=== PATIENT | male | born 1950 | race Hispanic/Latino ===

== ENCOUNTER 2019-07-27 12:41 | Inpatient (IN) | payer MEDICARE, OTHER ==
[~2019-07-27] VITALS: Ht 167.6 cm; Wt 91.6 kg
[2019-07-27 14:24] LABS: BASOPHILS # (AUTO) 0.1 (0.0-0.1); BASOPHILS % 0.5 % (0.0-1.0); EOSINOPHILS # (AUTO) 0.2 (0.0-0.4); EOSINOPHILS % 1.5 % (0.0-6.0); HEMATOCRIT 40.1 % (38.2-49.6); HEMOGLOBIN 12.6 g/dL (14.0-18.0); LYMPHOCYTES # (AUTO) 1.2 (1.0-3.2); LYMPHOCYTES % 11.6 % (18.0-39.1); MEAN CORPUSCULAR HEMOGLOBIN 32.6 pg (28-32); MEAN CORPUSCULAR HGB CONC 31.4 g/dL (31-35); MEAN CORPUSCULAR VOLUME 103.6 fL (81-99); MONOCYTES # (AUTO) 0.7 (0.2-0.8); MONOCYTES % 6.9 % (4.4-11.3); NEUTROPHILS # (AUTO) 7.8 (2.1-6.9); NEUTROPHILS % 78.6 % (38.7-80.0); PLATELET COUNT 236 x10e3/uL (140-360); RED BLOOD COUNT 3.87 x10e6/uL (4.3-5.7); RED CELL DISTRIBUTION WIDTH 16.1 % (11.7-14.4)
[2019-07-27 14:43] LABS: ALBUMIN/GLOBULIN RATIO 0.4 (0.8-2.0); ANION GAP 15.5 mmol/L (8-16); CALCIUM 8.9 mg/dL (8.4-10.2); CHOL/HDL RATIO 30.1 (3.9-4.7); CREATININE, SERUM 3.64 mg/dL (0.72-1.25); POTASSIUM 4.5 mmol/L (3.5-5.1)
[2019-07-27 14:47] LABS: INR 2.55; PROTHROMBIN TIME 29.4 seconds (11.9-14.5)
[2019-07-27 14:51] LABS: B-TYPE NATRIURETIC PEPTIDE2 172.5 pg/mL (0-100); CREATINE KINASE MB 2.7 ng/mL (0-5.0)
[2019-07-27] MEDS ORDERED: CEFEPIME 1GM/NS 0.9% 50 ML 50 ML IV STA (15:17)
--- NOTE | 2019-07-27 16:00 | Emergency Department Note ---
History of Present Illnes History of Present Illness Chief Complaint: General Medicine Complaints Stated Complaint: SWOLLEN FEET History of Present Illness This is a 68 year old male . Historian: Patient Slasher Hand Required: No Onset (how long ago): month(s) (1 month) Severity: severe Onset quality: gradual Duration (how long): month(s) (1 month) Timing of current episode: constant Progression: worsening Chronicity: new Relieving factors: none Exacerbating factors: none Associated symptoms: other (abd pain and distention ) Treatments prior to arrival: none (TERRANCE AGUSTIN NP) Past Medical/Family History Physician Review I have reviewed the patient's past medical and family history. Any updates have been documented here. (TERRANCE AGUSTIN NP) Past Medical History Recent Fever: No Clinical Suspicion of Infectio: No New/Unexplained Change in Ment: No Past Medical History: Hypertension Past Surgical History: None (TERRANCE AGUSTIN NP) Social History Smoking Cessation: Former smoker (quit 45 days ago) Alcohol Use: None Any Illegal Drug Use: No TB Exposure/Symptoms: No Physically hurt or threatened: No (TERRANCE AGUSTIN NP) Family History Family history of heart diseas: Yes (TERRANCE AGUSTIN NP) Other Last Tetanus: ood Any Pre-Existing Lines (PICC,: No (TERRANCE AGUSTIN NP) Review of Systems Review of Systems Constitutional: malaise Cardiovascular: edema Respiratory: dyspnea, dyspnea on exertion Gastrointestinal: abdominal pain Genitourinary: no symptoms Musculoskeletal: no symptoms Integumentary: change in color (jaundice) Neurological: no symptoms Psychological: no symptoms Endocrine: no symptoms Hematological/Lymphatic: no symptoms Review of other systems All other systems reviewed and negative. (TERRANCE AGUSTIN NP) Physical Exam Related Data Allergies: Coded Allergies: No Known Allergies (Unverified , 07/27/19) Triage Vital Signs Vital Signs Date Time Temp Pulse Resp B/P (MAP) Pulse Ox O2 Delivery O2 Flow Rate FiO2 07/27/19 13:39 97.8 73 18 128/76 100 (TERRANCE AGUSTIN NP) Exam Narrative Exam Narrative Patient is a 68 year old male that presents with eva foot pain and swelling that started 1 month ago. Patient states he is also having abdominal pain and distention and noticed eye were yellow. (TERRANCE AGUSTIN NP) Physical Exam CONSTITUTIONAL Constitutional: ill appearing HENT HENT: normocephalic, atraumatic, oropharynx normal, pharynx abnormal HENT - Ear: left TM normal, right TM normal EYES Eyes: PERRL, scleral icterus NECK Neck: ROM normal, supple PULMONARY Pulmonary: effort normal, breath sounds normal CARDIOVASCULAR Cardiovascular: regular rhythm, heart sounds normal, capillary refill normal, normal rate GASTROINTESTINAL Abdominal: distension, tender GENITOURINARY SKIN Skin: warm, jaundiced MUSCULOSKELETAL Musculoskeletal: ROM normal, edema NEUROLOGICAL Neurological: alert, oriented x 3, no gross motor or sensory deficits PSYCHOLOGICAL Psychiatric/behavioral: mood/affect normal, behavior normal (TERRANCE AGUSTIN NP) Results Laboratory Laboratory Laboratory Tests Test 07/27/19 13:55 White Blood Count 9.90 x10e3/uL (4.8-10.8) Red Blood Count 3.87 x10e6/uL (4.3-5.7) Hemoglobin 12.6 g/dL (14.0-18.0) Hematocrit 40.1 % (38.2-49.6) Mean Corpuscular Volume 103.6 fL (81-99) Mean Corpuscular Hemoglobin 32.6 pg (28-32) Mean Corpuscular Hemoglobin Concent 31.4 g/dL (31-35) Red Cell Distribution Width 16.1 % (11.7-14.4) Platelet Count 236 x10e3/uL (140-360) Neutrophils (%) (Auto) 78.6 % (38.7-80.0) Lymphocytes (%) (Auto) 11.6 % (18.0-39.1) Monocytes (%) (Auto) 6.9 % (4.4-11.3) Eosinophils (%) (Auto) 1.5 % (0.0-6.0) Basophils (%) (Auto) 0.5 % (0.0-1.0) Neutrophils # (Auto) 7.8 (2.1-6.9) Lymphocytes # (Auto) 1.2 (1.0-3.2) Monocytes # (Auto) 0.7 (0.2-0.8) Eosinophils # (Auto) 0.2 (0.0-0.4) Basophils # (Auto) 0.1 (0.0-0.1) Absolute Immature Granulocyte (auto 0.09 x10e3/uL (0-0.1) Prothrombin Time 29.4 seconds (11.9-14.5) Prothromb Time International Ratio 2.55 Activated Partial Thromboplast Time 23.0 seconds (23.8-35.5) Sodium Level 141 mmol/L (136-145) Potassium Level 4.5 mmol/L (3.5-5.1) Chloride Level 115 mmol/L (98-107) Carbon Dioxide Level 15 mmol/L (22-29) Anion Gap 15.5 mmol/L (8-16) Blood Urea Nitrogen 54 mg/dL (7-26) Creatinine 3.64 mg/dL (0.72-1.25) Estimat Glomerular Filtration Rate 17 ML/MIN (60-) BUN/Creatinine Ratio 15 (6-25) Glucose Level 93 mg/dL (74-118) Lactic Acid Level 1.8 mmol/L (0.5-2.0) Calcium Level 8.9 mg/dL (8.4-10.2) Total Bilirubin 8.1 mg/dL (0.2-1.2) Aspartate Amino Transf (AST/SGOT) 56 IU/L (5-34) Alanine Aminotransferase (ALT/SGPT) 47 IU/L (0-55) Alkaline Phosphatase 549 IU/L (40-150) Creatine Kinase 36 IU/L (30-200) Creatine Kinase MB 2.70 ng/mL (0-5.0) Troponin I 0.011 ng/mL (0-0.300) B-Type Natriuretic Peptide 172.5 pg/mL (0-100) Total Protein 6.7 g/dL (6.5-8.1) Albumin 2.0 g/dL (3.5-5.0) Globulin 4.7 g/dL (2.3-3.5) Albumin/Globulin Ratio 0.4 (0.8-2.0) Triglycerides Level 264 MG/DL (0-149) Cholesterol Level 211 MD/DL (0-199) LDL Cholesterol 151 MG/DL (60-130) HDL Cholesterol 7 MG/DL (40-60) Cholesterol/HDL Ratio 30.1 (3.9-4.7) Lipase 53 U/L (8-78) Lab results reviewed: Yes (TERRANCE AGUSTIN NP) Imaging Y: Yes (TERRANCE AGUSTIN NP) Procedures 12 Lead ECG Interpretation Slasher Hand: Interpreted by ED physician (JOSS) Date: July 27, 2019 Time: 14:03 Rhythm: sinus rhythm Rate: normal QRS axis: normal Clinical Impression: normal ECG (TERRANCE AGUSTIN NP) Critical Care Time Subsequent provider I assumed direction of critical care for this patient from another provider of my specialty. (TERRANCE AGUSTIN NP) Assessment & Plan Assessment & Plan Problems: (1) Bilirubinemia (2) Liver cirrhosis (3) Transaminitis Assessment & Plan 1315- PATIENT TO A ROOM, DISCUSSED BLOOD WORK AND XRAY. ALSO DISCUSSED WITH PATIENT THAT HE WILL BE STAYING OVERNIGHT 1420- AWAITING ALL RESULTS, PATIENT RESTING 1530- ALL RESULTS DISCUSSED WITH DR COREAS, SPOKE TO DR JJ. ADMISSION ORDERS PLACED (TERRANCE AGUSTIN NP) Depart Disposition: ADMITTED Last Vital Signs Date Time Temp Pulse Resp B/P (MAP) Pulse Ox O2 Delivery O2 Flow Rate FiO2 07/27/19 13:39 97.8 73 18 128/76 100 (TERRANCE AGUSTIN NP) Home Meds Reported Medications [Denies HM] No Conflict Check 07/27/19 Attestation Medications in the ED The patient's history, exam findings, diagnostics, and a summary of any inte rventions or procedures was reviewed in detail with our RADHA. I personally interviewed and examined the patient, and I have reviewed and agree with the HPI andexam. My personal exam shows ill appearing male with scleral icterus. Abdomen distended but pt is not in acute respiratory distress. I confirm the diagnosis as documented by the RADHA. I have reviewed and agree with the care plan articulated in the disposition section. (FERNANDO COREAS DO) TERRANCE AGUSTIN NP July 27, 2019 14:01 FERNANDO COREAS DO July 27, 2019 15:22
[2019-07-27 17:07] LABS: BILIRUBIN,URINE LARGE (NEGATIVE); CLARITY,URINE CLOUDY (CLEAR); COLOR,URINE AMBER (YELLOW); KETONES,URINE TRACE (NEGATIVE); LEUKOCYTE ESTERASE ,URINE TRACE (NEGATIVE); NITRITE,URINE NEGATIVE (NEGATIVE); PROTEIN,URINE DIPSTICK 2+ (NEGATIVE); URINE UROBILINOGEN 2 mg/dL (0.2 - 1)
[2019-07-27 17:19] LABS: AMORPHOUS SEDIMENT,URINE MODERATE (FEW); BACTERIA,URINE MANY /HPF; EPITHELIAL CELLS,URINE RARE /LPF
[2019-07-27 21:00] VITALS: BP 136/73
[2019-07-27] MEDS ORDERED: PNEUMOCOCCAL VACCINE POLYVALENT 23 MCG/0.5 ML VIAL IM SCH (21:20)
[2019-07-27 21:30] VITALS: BP 136/73
[2019-07-27 23:06] VITALS: BP 136/73
[2019-07-27] MEDS ORDERED: [UNRECOGNIZED DRUG - REMARK] (23:11)
[2019-07-28] VITALS (7 sets, daily range): BP systolic 94–132; BP diastolic 58–74
[2019-07-28] MEDS ORDERED: PHYTONADIONE 10 MG/ML AMP IV ONE (00:30)
[2019-07-28] MEDS ORDERED: PHYTONADIONE 10MG/ML 20 MG in SODIUM CHLORIDE 0.9% 100 ML 100 ML IV ONE (00:45)
[2019-07-28] MEDS ORDERED: THIAMINE HCL INJ 100 MG in SODIUM CHLORIDE 0.9% 50ML 50 ML IV SCH (02:00)
[2019-07-28] MEDS ORDERED: PHYTONADIONE 10MG/ML 20 MG in SODIUM CHLORIDE 0.9% 50ML 50 ML IV ONE (02:30)
[2019-07-28] MEDS ORDERED: SODIUM CHLORIDE 0.9% 250ML 250 ML ONE (02:35)
[2019-07-28 05:30] LABS: BASOPHILS # (AUTO) 0.1 (0.0-0.1); BASOPHILS % 0.8 % (0.0-1.0); EOSINOPHILS # (AUTO) 0.3 (0.0-0.4); EOSINOPHILS % 3.9 % (0.0-6.0); HEMATOCRIT 33.5 % (38.2-49.6); HEMOGLOBIN 10.7 g/dL (14.0-18.0); LYMPHOCYTES # (AUTO) 1.2 (1.0-3.2); LYMPHOCYTES % 13.5 % (18.0-39.1); MEAN CORPUSCULAR HEMOGLOBIN 33.3 pg (28-32); MEAN CORPUSCULAR HGB CONC 31.9 g/dL (31-35); MEAN CORPUSCULAR VOLUME 104.4 fL (81-99); MONOCYTES # (AUTO) 0.7 (0.2-0.8); MONOCYTES % 7.6 % (4.4-11.3); NEUTROPHILS # (AUTO) 6.4 (2.1-6.9); NEUTROPHILS % 73.3 % (38.7-80.0); PLATELET COUNT 215 x10e3/uL (140-360); RED BLOOD COUNT 3.21 x10e6/uL (4.3-5.7); RED CELL DISTRIBUTION WIDTH 15.6 % (11.7-14.4)
[2019-07-28 05:43] LABS: INR 1.11
[2019-07-28 05:59] LABS: ALBUMIN 1.7 g/dL (3.5-5.0); ALBUMIN/GLOBULIN RATIO 0.4 (0.8-2.0); CALCIUM 7.8 mg/dL (8.4-10.2); CREATININE, SERUM 3.57 mg/dL (0.72-1.25)
[2019-07-28 06:08] LABS: FERRITIN 340.34 ng/mL (21.81-274.66)
--- NOTE | 2019-07-28 06:30 | NUR ---
Left message for Dr Rosa regarding new consult for abnormal kidney function, ascites. Awaiting call back.
--- NOTE | 2019-07-28 06:34 | NUR ---
Return call from Dr Rosa, Will see patient.
--- NOTE | 2019-07-28 07:05 | NUR ---
Bedside report and walking rounds completed with on coming nurse. Patient in bed with call light within reach. No issues or concerns noted.
[2019-07-28] MEDS ORDERED: MULTIVITAMINS- 12 INJECTION 10 ML, FOLIC ACID MDV 5 MG, THIAMINE HCL INJ 100 MG in SODI... IV SCH (09:00)
--- NOTE | 2019-07-28 09:56 | Diagnostic Imaging Report ---
EXAMINATION: CHEST SINGLE (PORTABLE) INDICATION: Shortness of breath COMPARISON: None FINDINGS: LINES/TUBES:None LUNGS:The lung volumes are low. Right basilar patchy opacity. PLEURA:No pleural effusion or pneumothorax. MEDIASTINUM:The cardiomediastinal silhouette appears normal in size and shape. BONES/SOFT TISSUES:No acute osseous injury. ABDOMEN:No free air under the diaphragm. IMPRESSION: Low lung volumes. Right basilar patchy opacity, more likely subsegmental atelectasis than superimposed aspiration or pneumonia. Signed by: Derick Vasquez MD on 07/28/2019 9:50 AM
--- NOTE | 2019-07-28 10:59 | Diagnostic Imaging Report ---
EXAM: CT Abdomen and Pelvis WITHOUT intravenous contrast INDICATION: Abdominal distention COMPARISON: None. TECHNIQUE: Abdomen and pelvis were scanned utilizing a multidetector helical scanner from the lung base to the pubic symphysis without administration of IV contrast. Coronal and sagittal reformations were obtained. IV CONTRAST: None ORAL CONTRAST: Water COMPLICATIONS: None RADIATION DOSE: Total DLP: 729 mGy*cm Dose modulation, iterative reconstruction, and/or weight based adjustment of the mA/kV was utilized to reduce the radiation dose to as low as reasonably achievable. FINDINGS: LOWER THORAX: Right basilar subsegmental atelectasis. HEPATOBILIARY: Hepatic cirrhosis. Heterogeneous attenuation of liver parenchyma, most notably the left liver and segment 4. Unremarkable gallbladder. SPLEEN: Splenomegaly to 15 cm. PANCREAS: No focal masses or ductal dilatation. ADRENALS: No adrenal nodules. KIDNEYS/URETERS: Severely atrophic left kidney, likely congenital. Unremarkable appearance of right kidney without renal calculus or hydronephrosis. PELVIC ORGANS/BLADDER: Unremarkable. PERITONEUM / RETROPERITONEUM: Large volume ascites in the abdomen and pelvis. LYMPH NODES: No lymphadenopathy. VESSELS: Scattered atherosclerotic calcifications of the nonaneurysmal abdominal aorta and major branches. GI TRACT: No abnormal bowel thickening. No bowel obstruction. BONES AND SOFT TISSUES: No acute osseous injury. No suspicious lytic or blastic lesions. IMPRESSION: Hepatic cirrhosis and splenomegaly. Large volume ascites consistent with portal hypertension. Heterogeneous appearance of the liver parenchyma, most notably on the left. Underlying liver mass cannot be excluded on this noncontrast examination. Recommend liver mass protocol CT or MRI for further evaluation. Severely atrophic left kidney, likely congenital. Signed by: Derick Vasquez MD on 07/28/2019 10:52 AM
--- NOTE | 2019-07-28 12:56 | Diagnostic Imaging Report ---
PROCEDURE: Ultrasound-guided paracentesis Procedural Personnel Attending physician(s): Derick Vasquez MD Pre-procedure diagnosis: Ascites Post-procedure diagnosis: Unchanged Indication: Ascites with pain or pressure symptoms Additional clinical history: None Complications: No immediate complications. IMPRESSION: Ultrasound-guided paracentesis with drainage of 9200 mL of serous fluid. Plan: Resume care by clinical team. PROCEDURE SUMMARY: - Limited abdominal ultrasound - Ultrasound-guided paracentesis - Additional procedure(s): None PROCEDURE DETAILS: Pre-procedure Consent: Informed consent for the procedure including risks, benefits and alternatives was obtained and time-out was performed prior to the procedure. Preparation: The site was prepared and draped using maximal sterile barrier technique including cutaneous antisepsis. Anesthesia/sedation Level of anesthesia/sedation: None Initial abdominal ultrasound Initial abdominal ultrasound was performed. Findings: Large ascites. A safe window for paracentesis was identified. Paracentesis Local anesthesia was administered. The peritoneal cavity was accessed and fluid return confirmed position. Ascites was drained. The catheter was then removed, and a sterile bandage was applied. Paracentesis access technique: Real-time ultrasound guidance. Catheter placed: 5Fr Yueh Post-drainage ultrasound: No visible ascites Additional Details Additional description of procedure: None Equipment details: None Specimens removed: Abdominal fluid Estimated blood loss (mL): Minimal (<10cc) Standardized report: [email or web address] Attestation Signer name: Derick Vasquez MD I attest that I was present for the entire procedure. I reviewed the stored images and agree with the report as written. Signed by: Derick Vasquez MD on 07/28/2019 12:49 PM
--- NOTE | 2019-07-28 14:49 | History and Physical ---
HISTORY OF PRESENT ILLNESS: The patient is a 68-year-old male with past medical history positive for heavy alcohol and tobacco abuse, came to the hospital complaining of increased swelling on the legs and abdominal distention, and showing these admitted to the hospital. REVIEW OF SYSTEMS: CARDIOVASCULAR: No chest pain or palpitation. RESPIRATORY: No shortness of breath. No cough. GASTROINTESTINAL: No nausea. No vomiting. No diarrhea. GENITOURINARY: No frequency or dysuria. ALLERGIES: HE IS NOT ALLERGIC TO ANY MEDICATION. SOCIAL HISTORY: Heavy alcohol and tobacco abuser. He quit few days ago. PHYSICAL EXAMINATION: HEART: Showed regular rhythm. Normal S1, S2 sound. LUNGS: Clear bilaterally. ABDOMEN: Soft, but distended. No tenderness. No visceromegaly. EXTREMITIES: Show 2+ bilateral pedal edema. VITAL SIGNS: Blood pressure is 132/74, temperature 97.6 degrees Fahrenheit, heart rate 76 per minute, respiratory rate 18 per minute, oxygen saturation 97%. LABORATORY DATA: On the complete metabolic panel; sodium 139, potassium 4.0, chloride 117, carbon dioxide 14, BUN 59, creatinine 3.57, GFR is 17, glucose 95, calcium 7.8, iron 44, TIBC 123, transferrin 488, ferritin 340.34, total bilirubin 6.8. AST 52, ALT 38, alkaline phosphatase 459. Ammonia level is 81. Total protein 5.8, albumin 1.7, globulin 4.1, albumin/globulin ratio 0.4, vitamin B12 alpha-fetoprotein is not there yet. Folic acid is pending. He had a hepatitis profile order. Coronavirus disease pending. IMAGING: He has chest x-ray and CT of the chest, which are still pending. PLAN OF TREATMENT: He is going to go for paracentesis. Dr. Jose Munoz was consulted. From Gastroenterology point of view, he is on pneumonia vaccine. I am going to put him on Lasix 40 mg IV twice a day. I am going to start him on Aldactone 25 mg twice a day. We are going to repeat a CMP tomorrow. He is going to go for paracentesis today. Hepatitis profile has been ordered. Ceruloplasmin, antinuclear antibodies, and antimitochondrial antibodies have been ordered. Also part of the workup alpha-fetoprotein has been ordered. MD DARREL Najera/KELLY /[id number]
[2019-07-28 14:55] LABS: LYMPHOCYTES,BODY FLUID 44 %; MONO/MACROPHG,BODY FLUID 10 %; OTHER CELLS,BODY FLUID 33 %
[2019-07-28 14:57] LABS: NEUTROPHILS,BODY FLUID 13 %
[2019-07-28 15:28] LABS: BODY FLUID APPEARANCE CLOUDY; BODY FLUID COLOR GREEN
[2019-07-28 15:29] LABS: BODY FLUID TYPE PERITONEAL
[2019-07-28 15:41] LABS: RBC,BODY FLUID 99 cells/uL; WBC,BODY FLUID 67 cells/uL
[2019-07-28] MEDS: FUROSEMIDE INJ 10 MG/ML 4 ML VIAL IV SCH ×2 (15:56→21:35)
--- NOTE | 2019-07-28 16:55 | Diagnostic Imaging Report ---
EXAM: Renal Ultrasound INDICATION: ^kidmey failure ^[id number] ^[id number] COMPARISON: None TECHNIQUE: Transverse and longitudinal images of the kidneys and bladder were obtained. FINDINGS: Right Kidney: Length: 10.6 cm Appearance: Normal echogenicity. Collecting system: No hydronephrosis Stones: None Cyst/Mass: None Left Kidney: Length: 6.2 cm Appearance: Normal echogenicity. Collecting system: No hydronephrosis Stones: None Cyst/Mass: None Bladder: No mass or calculi. Bilateral ureteral jets visualized. Prevoid volume estimate of 34 cc. The prostate measures 1.6 x 1.4 x 2.5 cm with volume estimate of 3 cc. Small volume ascites. IMPRESSION: No hydronephrosis or renal calculi. Atrophic left kidney, likely congenital. Small volume ascites. Signed by: Derick Vasquez MD on 07/28/2019 4:43 PM
[2019-07-28] MEDS: SPIRONOLACTONE 25 MG TAB PO SCH (18:44)
--- NOTE | 2019-07-28 19:46 | NUR ---
Received bedside report from day nurse. Patient awake and resting in bed, no s/s of distress at this time. Bed locked and in low position, call light placed within reach. All safety measures in place. Will continue to monitor.
--- NOTE | 2019-07-28 22:01 | Consultation ---
DATE OF CONSULTATION: Initial Nephrology Consultation Report REASON FOR CONSULTATION: Renal failure. HISTORY OF PRESENT ILLNESS: Mr. Mercer is a 68-year-old male, who presented to the hospital because of increased swelling and the patient states that he does not have a family physician PCP. He says he has not sought healthcare in the past 35 years. The patient presents actually with what looks like to be liver cirrhosis. I am being asked to see him because of BUN and creatinine of 59 and 3.5 respectively. I do not have any old serum creatinine values on him and he cannot tell me anything about his past medical history. He says he does not know since he has not been to a doctor in 35 years. The patient denies taking any NSAIDs or FRASER-2 inhibitors which are nephrotoxic. PAST MEDICAL HISTORY: The patient states at one time he was told by somebody that he has hypertension. He was started on some blood pressure medicines for a while, but then he stopped taking those. PAST SURGICAL HISTORY: Unknown. MEDICATIONS: As per MAR. REVIEW OF SYSTEMS: As per HPI. PHYSICAL EXAMINATION: VITAL SIGNS: Blood pressure 138/74, pulse 76, respirations 18. GENERAL: The patient is in no acute distress. HEENT: No increased JVD. CARDIOVASCULAR: Regular rate and rhythm. LUNGS: Clear to auscultate to auscultation. ABDOMEN: Distended. EXTREMITIES: The patient has 3+ edema of the legs. LABORATORY RESULTS: Sodium 139, potassium 4, chloride 117, bicarb 14, BUN and creatinine 59 and 3.5 respectively. Hematocrit is 33. IMPRESSION: 1. Acute kidney injury. 2. Liver failure. 3. Atrophic left kidney. 4. Probable metabolic acidosis. 5. Anasarca. PLAN: At the present time, the patient has renal failure. The patient underwent a paracentesis that took off 9.[address] of the abdomen was done, which shows that the left kidney is severely atrophic, so basically the patient is living off with one kidney. It is hard to know the etiology of this kidney failure since we do not have a baseline established. We do not know if this is all acute, but there is a chronic component. I will check a renal ultrasound just to see if they comment on the ultrasound of the remaining kidney. Also likely, he could have hepatorenal syndrome. He says that he was taking medicines for a short while for hypertension, but then he stopped those. His blood pressure is actually good here. In the meantime here in the hospital, NSAIDs, FRASER-2 inhibitors, IV contrast should be avoided. We will continue the Lasix. Also, the spironolactone will be continued. Also, we will watch his potassium. I will check a venous blood gas to make sure that the decrease in serum bicarb is metabolic acidosis and not respiratory alkalosis with metabolic compensation. If it is, then we will start him on some sodium bicarbonate tablets. Right now, he is at stage 4 chronic kidney disease, if this is his baseline. Thank you, Dr. Mckinley, for this consultation. Ather MD NEO Beck/KELLY /[id number]
--- NOTE | 2019-07-28 23:52 | NUR ---
Report given to oncoming nurse. Patient in stable condition, no s/s of distress at this time.
[2019-07-29] VITALS (7 sets, daily range): BP systolic 104–143; BP diastolic 53–65
--- NOTE | 2019-07-29 | NUR ---
pt received. no ss of distress noted. 24 urine on ice. no co pain at time. will cont to follow poc. call ferraro within reach.
--- NOTE | 2019-07-29 04:04 | NUR ---
pt resting. no ss of distress noted. call ferraro within reach.
[2019-07-29 05:57] LABS: ALBUMIN 1.7 g/dL (3.5-5.0); ALBUMIN/GLOBULIN RATIO 0.4 (0.8-2.0); ANION GAP 14.2 mmol/L (8-16); CREATININE, SERUM 3.7 mg/dL (0.72-1.25); POTASSIUM 4.2 mmol/L (3.5-5.1)
[2019-07-29] MEDS: FOLIC ACID 1 MG TAB PO SCH (08:42)
[2019-07-29] MEDS: THIAMINE HCL 100 MG TAB PO SCH (08:42)
[2019-07-29] MEDS: FUROSEMIDE INJ 10 MG/ML 4 ML VIAL IV SCH ×2 (08:42→20:53)
[2019-07-29] MEDS: SPIRONOLACTONE 25 MG TAB PO SCH ×2 (08:42→18:21)
[2019-07-29] MEDS: IRON SUCROSE 100 MG in SODIUM CHLORIDE 0.9% 100 ML 100 ML IV SCH (08:44)
[2019-07-29] MEDS ORDERED: MULTIVITAMINS 120ML BOTTLE PO SCH (09:00)
--- NOTE | 2019-07-29 10:45 | NUR ---
ASSESSMENT: Spiritual concern Surgeon'S Assistant referred by RN. Pt lonely. Pt recounting life experiences and reflecting on family. Pt states his 90 y/o mother still lives near [place]. Intervention: Provided unhurried pastoral presence. Facilitated illness review and storytelling. Outcome: Pt expressed appreciation for visit and support. Provided information on how to reach starch mangle tender, if needed. No need to follow at this time. DAY CROWDER Surgeon'S Assistant Spiritual Care Department O: [phone]
--- NOTE | 2019-07-29 11:24 | Progress Note ---
DATE: Internal Medicine Progress Note SUBJECTIVE: The patient is doing well. PHYSICAL EXAMINATION: HEART: Showed regular rhythm. Normal S1 and S2 sound. LUNGS: Clear bilaterally. ABDOMEN: Distended, but not as much as before. EXTREMITIES: Show 2+ bilateral pedal edema. VITAL SIGNS: Blood pressure 112/60, temperature 96.6, heart rate 67 per minute, respiratory rate is 20 per minute, oxygen saturation 98%. LABORATORY DATA: On the blood work, we have a CBC; white blood count 8.76, hemoglobin 10.7, hematocrit 33.5, platelet count of 215,000. On the BMP; sodium 139, potassium 4.2, chloride 115, carbon dioxide 14, BUN 62, creatinine 3.70, glucose 95, calcium 8.0, ferritin is elevated at 340.34. AST 93, ALT 50, ammonia is 174. The patient is alert and oriented. Alpha fetoprotein is 2.1, which is within normal limits. Folate is 10.9, lipase is normal at 53. Ceruloplasmin is pending. Triglycerides are 264, cholesterol is 211. We have a hepatitis profile negative. Coronavirus test is pending. Antimitochondrial antibody is pending. The patient had paracentesis also done. Peritoneal fluid shows 67 white blood cells, 99 red blood cells, lymphocytes 44, neutrophils 13, monocytes 10, and so far the fluid culture from ascites is completely negative. Urine culture is negative. Blood culture is negative. FINAL IMPRESSION: 1. Cirrhosis with ascites. 2. Anasarca. 3. Acute on chronic renal failure stage 3, more likely secondary to hepatorenal syndrome. 4. Anemia of chronic disease secondary to cirrhosis. 5. Urinary tract infection. PLAN OF TREATMENT: Continue iron sucrose 100 mg IV daily. Continue folic acid 1 mg daily, furosemide 40 mg IV twice a day, multivitamin daily, Aldactone 25 mg twice a day, and thiamine 100 mg daily. We are going to order BMP tomorrow to monitor BUN, creatinine and electrolytes. We are using high dose of the furosemide and also we are using Aldactone. We are going to order physical and occupational therapy also. The patient is told to abstain from drinking and smoking of course. Dr. Jose Munoz is seeing the patient from the Gastroenterology point of view. Time spent around 35 to 40 minutes. MD DARREL Najera/KELLY /[id number]
[2019-07-29] MEDS: SODIUM BICARBONATE 650 MG TAB PO SCH (13:55)
[2019-07-29 17:15] LABS: DURATION, URINE COLLECTION 24 hrs; TOTAL VOLUME, URINE 3000 ml/24hr (800-2000)
[2019-07-29 17:41] LABS: CREATININE 24 HOUR,URINE 682 mg/24hr (800-2000); CREATININE,URINE RANDOM 22.73 mg/dL (63-166)
[2019-07-29 17:46] LABS: TOTAL PROTEIN, URINE < 6.8 mg/dL (1-14)
--- NOTE | 2019-07-29 17:47 | NUR ---
Nutrition Screen Note RD Recommendation for Physician: - Continue current diet Plan of Care: RD following, monitoring for tolerance and adequacy Nutrition reason for involvement: Nutrition Risk Trigger Primary Diagnose(s): cirrhosis, ascites, anasarca, transaminitis, bilirubinemia PMH: ETOH abuse, substance use, CKD3 Ht: 66 in Wt: 202.19 lb BMI: 32.6 kg/m2 IBW: [address] Assessment: (07/28) 68 YOM admitted for cirrhosis and ascites requiring paracentesis. Pt seen today for MST screen. Pt reports good appetite and po intake, noted 75-100% of meals per chart. Pt reports UBW of 200#, no wt loss noted. Pt reports feeling better after paracentesis. Pt denies any N/V/C/D. Chart reviewed. Labs and meds reviewed. Will continue to monitor. Current Diet: Cardiac Malnutrition Evaluation (07/29/19) The patient does not meet criteria for a specified degree of malnutrition at this time. Will re-evaluate at follow-up as appropriate. Diet Education Needs Assessment: Diet education not indicated. Diet tolerance: tolerating po Nutrition Care Level: low Signed: Diana Pantoja RD, LD, [facility]
--- NOTE | 2019-07-29 18:02 | NUR ---
patient resting in bed, alert with no distress, denies any pain or SOB
--- NOTE | 2019-07-29 18:57 | NUR ---
Received change of shift report from AM nurse. Walking rounds completed. Patient in bed resting quitly at this time.
--- NOTE | 2019-07-29 22:45 | NUR ---
Yuim RICHARDS from ER completed nasal swab. Sent to lab. IV restarted left AC 20G x1 stick. Patient tolerated well.
--- NOTE | 2019-07-29 23:44 | NUR ---
Dr Munoz on the floor to see patient. Orders received. Consult placed for nutrient for teaching on 2gm sodium diet.
[2019-07-30] VITALS: BP_SYST 101; BP_SYST 114; BP_DIAS 63; BP_DIAS 68
[2019-07-30 06:01] LABS: ALBUMIN 1.6 g/dL (3.5-5.0); ALBUMIN/GLOBULIN RATIO 0.4 (0.8-2.0); ANION GAP 13.8 mmol/L (8-16); CALCIUM 8.3 mg/dL (8.4-10.2); CREATININE, SERUM 3.51 mg/dL (0.72-1.25); POTASSIUM 3.8 mmol/L (3.5-5.1)
--- NOTE | 2019-07-30 06:19 | NUR ---
Patient resting quitly at this time. Continue monitor.
[2019-07-30 07:56] VITALS: BP 100/55
[2019-07-30 08:09] VITALS: BP 100/55
[2019-07-30] MEDS: MULTIVITAMINS/MINERALS TAB PO SCH (08:36)
[2019-07-30] MEDS: THIAMINE HCL 100 MG TAB PO SCH (08:36)
[2019-07-30] MEDS: SPIRONOLACTONE 25 MG TAB PO SCH ×2 (08:36→17:25)
[2019-07-30] MEDS: FOLIC ACID 1 MG TAB PO SCH (08:36)
[2019-07-30] MEDS: SODIUM BICARBONATE 650 MG TAB PO SCH (08:36)
[2019-07-30] MEDS: IRON SUCROSE 100 MG in SODIUM CHLORIDE 0.9% 100 ML 100 ML IV SCH (08:37)
[2019-07-30] MEDS ORDERED: IRON SUCROSE 100 MG in SODIUM CHLORIDE 0.9% 100 ML 100 ML IV SCH (09:00)
[2019-07-30] MEDS: FUROSEMIDE INJ 10 MG/ML 4 ML VIAL IV SCH ×2 (09:36→21:00)
[2019-07-30 11:56] VITALS: BP 110/64
[2019-07-30] MEDS ORDERED: LACTULOSE SYRUP 20 GM/30 ML UDC PO PRN (14:30)
[2019-07-30 16:00] VITALS: BP 96/57
--- NOTE | 2019-07-30 16:01 | NUR ---
RD received consult for low sodium diet education Nutrition Education Learner(s): pt Barriers: none Cultural/Language Modifications: No cultural/language modifications noted Readiness: eager/acceptance Method: explanation/ discussion, handout Topics: low sodium diet Understanding/Compliance: pt verbalized understanding Signed: Coretta Santamaria RD, LD
--- NOTE | 2019-07-30 16:21 | Diagnostic Imaging Report ---
EXAM: Right upper quadrant abdominal ultrasound INDICATION: Hyperbilirubinemia COMPARISON: CT abdomen and pelvis of 07/27/2019 TECHNIQUE: Transverse and longitudinal images of the right upper quadrant abdomen were obtained FINDINGS: Liver: Size: 17.8 cm in the right midclavicular line Appearance: Normal echogenicity, nodular contour Mass: Hypoechoic right hepatic mass measures 8.0 x 9.6 x 6.1 cm. Ill-defined left hepatic mass measures 5.5 x 6.3 x 8.0 cm. Gallbladder: No gallbladder distension, pericholecystic fluid, wall thickening, stone, or reported sonographic Chambers's sign. Gallbladder wall measures 3 mm. Bile Ducts: Intrahepatic Ducts: No dilatation Extrahepatic Ducts: Common bile duct measures 4 mm Pancreas: Visualized portions of the pancreatic head, neck and proximal body are normal. Kidney: The right kidney measures 10.2 cm without evidence of hydronephrosis or stone. Vessels: Aorta: Visualized portions are normal Inferior Vena Cava: Visualized portions are normal Main Portal Vein: 0.9 cm, normal size with hepatopetal flow. Free Fluid: Moderate abdominal ascites. IMPRESSION: Hepatic cirrhosis. Right and left liver masses are concerning for hepatic malignancy in this cirrhotic patient. Recommend liver MRI with and without contrast for further evaluation. Moderate abdominal ascites. Signed by: Derick Vasquez MD on 07/30/2019 4:18 PM
--- NOTE | 2019-07-30 17:24 | Progress Note ---
DATE: Internal Medicine Progress Note SUBJECTIVE: The patient is doing well. No significant complaint. PHYSICAL EXAMINATION: HEART: Showed regular rhythm. Normal S1, S2 sound. LUNGS: Clear bilaterally. ABDOMEN: Soft. EXTREMITIES: Show no edema. VITAL SIGNS: Blood pressure 110/64, temperature 97.5, heart rate 65 per minute, respiratory rate is 20 per minute, oxygen saturation 100%. LABORATORY DATA: On the blood work, we have CBC; white blood count 8.76, hemoglobin 10.7, hematocrit 33.5, platelet count of 215. On the BMP; sodium 140, potassium 3.8, chloride 113, CO2 17, BUN 60, creatinine 3.51, glucose 90, calcium 8.3, phosphorus 4.8, magnesium 2.1. Total bilirubin 8.3, which is higher than before. AST is 129, which is higher than before, which was 93, ALT is up to 66, which is higher than 50 before. Alkaline phosphatase is 727, which is high than 629. Total protein is 5.6, albumin 1.6, globin 4.0, albumin globin ratio 0.2. Lipase is 53, vitamin B12 is 2000. FINAL IMPRESSION: 1. Cirrhosis with ascites. 2. Anasarca. 3. Portal hypertension. 4. Acute on chronic renal failure stage 3. 5. Anemia of chronic disease. 6. Urinary tract infection. 7. Hepatitis profile completely negative. Antimitochondrial antibody is pending. Ascites fluid is negative so far. PLAN OF TREATMENT: Continue with iron sucrose 100 mg IV, folic acid 1 mg daily, furosemide 40 mg IV twice a day, multivitamin one tab daily has been discontinued. Continue multivitamin one tab daily. Continue sodium bicarbonate 1300 mg daily, Aldactone 25 mg twice a day, and thiamine 100 mg daily. We are going to repeat CMP tomorrow to make sure the liver function tests are getting better. We are going to continue monitoring the ascites fluid culture to make sure he does not have any evidence of spontaneous bacterial peritonitis. So far, the patient has no fever on the fluid culture. The ascites fluid culture is negative. MD DARREL Najera/MODL /[id number]
[2019-07-30] MEDS ORDERED: PNEUMOCOCCAL VACCINE POLYVALENT 23 MCG/0.5 ML VIAL IM SCH (18:00)
[2019-07-30 20:00] VITALS: BP 113/63
--- NOTE | 2019-07-30 20:00 | NUR ---
Received change of shift report from AM nurse. Walking rounds completed.
[2019-07-31] VITALS (8 sets, daily range): BP systolic 98–114; BP diastolic 57–69
--- NOTE | 2019-07-31 05:32 | NUR ---
Patient resting quitly at this time.
[2019-07-31 06:38] LABS: ALBUMIN 1.6 g/dL (3.5-5.0); ALBUMIN/GLOBULIN RATIO 0.4 (0.8-2.0); ANION GAP 14.7 mmol/L (8-16); CALCIUM 8.4 mg/dL (8.4-10.2); CREATININE, SERUM 3.19 mg/dL (0.72-1.25); POTASSIUM 3.7 mmol/L (3.5-5.1)
--- NOTE | 2019-07-31 07:15 | NUR ---
PATIENT AMBULATING IN ROOM, NO COMPLAIN VOICED. EDEMA REMAINS TO LOWER EXTREMITIES. CALL LIGHT AT EASY REACH.
[2019-07-31] MEDS: SODIUM BICARBONATE 650 MG TAB PO SCH (09:06)
[2019-07-31] MEDS: PROPRANOLOL HCL 60 MG ER CAP PO SCH (09:06)
[2019-07-31] MEDS: MULTIVITAMINS/MINERALS TAB PO SCH (09:06)
[2019-07-31] MEDS: THIAMINE HCL 100 MG TAB PO SCH (09:06)
[2019-07-31] MEDS: FOLIC ACID 1 MG TAB PO SCH (09:07)
[2019-07-31] MEDS: FUROSEMIDE INJ 10 MG/ML 4 ML VIAL IV SCH ×2 (09:07→20:59)
[2019-07-31] MEDS: SPIRONOLACTONE 25 MG TAB PO SCH ×2 (09:07→17:33)
[2019-07-31] MEDS: IRON SUCROSE 100 MG in SODIUM CHLORIDE 0.9% 100 ML 100 ML IV SCH (10:20)
--- NOTE | 2019-07-31 12:04 | NUR ---
PATIENT SITTING AT BED SIDE EATING LUNCH, NO COMPLAIN VOICED. BED IN LOWER POSITION, CALL LIGHT AT REACH.
--- NOTE | 2019-07-31 15:33 | NUR ---
PATIENT IN BED TALKING ON THE PHONE, NO DISTRESS NOTED. CALL LIGHT AT REACH.
[2019-07-31] MEDS: LACTULOSE SYRUP 20 GM/30 ML UDC PO SCH (17:33)
--- NOTE | 2019-07-31 19:03 | Progress Note ---
DATE: Internal Medicine Progress Note SUBJECTIVE: The patient is doing well. PHYSICAL EXAMINATION: VITAL SIGNS: Blood pressure 101/63, temperature 97.2, heart rate 59 per minute, respiratory rate 16 per minute oxygen saturation 100%. HEART: Showed regular rhythm. Normal S1, S2 sound. LUNGS: Clear bilaterally. ABDOMEN: soft. EXTREMITIES: Show 2+ bilateral pedal edema. LABORATORY DATA: On the blood work, we have a CBC, white blood count 8.76, hemoglobin 10.7, hematocrit 33.5, platelet count of 215,000. On the BMP, sodium 139, potassium 3.7, chloride 101, CO2 17, BUN 58, creatinine 3.19, glucose 83, calcium 8.4. AST is 102, which is lower than before. ALT is down to 61, total bilirubin 8.3, ammonia level 170, total protein 5.5, albumin 1.6, globulin 3.9, albumin/globulin ratio is 0.4. Lipase is normal at 53. , vitamin B12 is 2000. On the microbiology, fluid culture is essentially negative for three days. Urine culture is negative also and blood culture x2 is completely negative. IMPRESSION: 1. Cirrhosis of the liver with ascites. 2. Anasarca. 3. Acute on chronic renal failure stage 3, most likely secondary to hepatorenal syndrome. 4. Chronic anemia. 5. Urinary tract infection. 6. Portal hypertension. PLAN OF TREATMENT: We are going to continue with the iron sucrose. We will use Venofer 100 mg IV daily. Continue folic acid 1 mg daily, furosemide 40 mg IV twice a day, lactulose 20 g twice a day as needed. Continue multivitamin one tab daily. Continue propranolol 60 mg daily. Continue sodium bicarbonate 1300 mg daily, Aldactone 25 mg twice a day, and thiamine 100 mg daily. I want to schedule lactulose to at least twice a day schedule. We are going to recheck the ammonia levels tomorrow. The patient might be able to go home tomorrow. DIET: He will continue low-salt diet. MD DARREL Najera/KELLY /[id number]
--- NOTE | 2019-07-31 19:15 | NUR ---
patient received awake, alert, lying quietly in bed. no c/o pain noted at this time. pm assessment complete. patient instructed to call for assistance when needed.
--- NOTE | 2019-07-31 19:24 | NUR ---
BED SIDE REPORT GIVEN TO ON COMING NURSE.
[2019-08-01] VITALS (7 sets, daily range): BP systolic 99–119; BP diastolic 59–72
[2019-08-01] MEDS ORDERED: RIFAXIMIN 550 MG TABLET PO STA (00:14)
[2019-08-01 06:43] LABS: ALBUMIN 1.5 g/dL (3.5-5.0); ALBUMIN/GLOBULIN RATIO 0.4 (0.8-2.0); ANION GAP 16.8 mmol/L (8-16); CALCIUM 8.2 mg/dL (8.4-10.2); CREATININE, SERUM 3.01 mg/dL (0.72-1.25); POTASSIUM 3.8 mmol/L (3.5-5.1)
--- NOTE | 2019-08-01 07:08 | NUR ---
PATIENT IN BED RESTING WITH NO S/S OF DISTRESS. EDEMA TO LOWER EXTREMITIES. BED IN LOWER POSITION, CALL LIGHT AT REACH.
[2019-08-01] MEDS: FOLIC ACID 1 MG TAB PO SCH (09:15)
[2019-08-01] MEDS: IRON SUCROSE 100 MG in SODIUM CHLORIDE 0.9% 100 ML 100 ML IV SCH (09:15)
[2019-08-01] MEDS: FUROSEMIDE INJ 10 MG/ML 4 ML VIAL IV SCH ×2 (09:15→20:16)
[2019-08-01] MEDS: SPIRONOLACTONE 25 MG TAB PO SCH ×2 (09:15→17:01)
[2019-08-01] MEDS: MULTIVITAMINS/MINERALS TAB PO SCH (09:16)
[2019-08-01] MEDS: LACTULOSE SYRUP 20 GM/30 ML UDC PO SCH ×2 (09:16→17:00)
[2019-08-01] MEDS: PROPRANOLOL HCL 60 MG ER CAP PO SCH (09:16)
[2019-08-01] MEDS: RIFAXIMIN 550 MG TABLET PO SCH ×2 (09:16→17:01)
[2019-08-01] MEDS: THIAMINE HCL 100 MG TAB PO SCH (09:16)
[2019-08-01] MEDS: SODIUM BICARBONATE 650 MG TAB PO SCH (09:16)
--- NOTE | 2019-08-01 11:22 | NUR ---
PATIENT OFF UNIT TO RADIOLOGY.
--- NOTE | 2019-08-01 11:50 | NUR ---
PATIENT BACK TO UNIT FROM RADIOLOGY.
--- NOTE | 2019-08-01 14:51 | Progress Note ---
DATE: Internal Medicine Progress Note SUBJECTIVE: The patient came here with compensated cirrhosis of the liver. He had a paracentesis done. Fluid culture came back negative. The patient was found to have a couple of tumors in the liver, most likely secondary to hepatoma. We are going to request an Oncology consult with Dr. Laguerre. The patient understands that he needs to stay here for that. PHYSICAL EXAMINATION: HEART: Showed regular rhythm. Normal S1, S2 sound. LUNGS: Clear bilaterally. ABDOMEN: Soft. EXTREMITIES: Show 2+ bilateral pedal edema. LABORATORY STUDIES: Blood work, white blood count 9.76, hemoglobin 10.7, hematocrit 33.5, platelet count of 215. On the BMP; sodium 141, potassium 3.8, chloride 110, CO2 18, BUN 57, creatinine 3.01. GFR is 21, which is making chronic renal failure stage 4, glucose 87, calcium 9.2, total bilirubin 8.2, AST 135, which is up from yesterday which was 102, ALT 73, which is higher than yesterday which was 61, alkaline phosphatase 76, which is higher than which is higher, ammonia is 189 which is higher. Total protein 5.4 mg, albumin 1.5, globulin 3.9, albumin globin ratio 0.4, alpha fetoprotein is 22.1. Liver ultrasound showed hepatic cirrhosis of the right and left liver mass and concern for hepatic malignancy in the cirrhotic patient, recommended liver MRI with and without contrast for further evaluation. unfortunately, the patient has renal failure, so MRI with contrast is out of the question. FINAL IMPRESSION: 1. Cirrhosis of the liver with ascites. 2. Liver tumors, rule out hepatoma. 3. Acute on chronic renal failure stage 4. 4. Anemia of chronic disease. 5. Urinary tract infection. 6. Portal hypertension. 7. Elevated ammonia level. PLAN OF TREATMENT: We are going to consult Dr. Laguerre for Hematology to evaluate these liver masses to rule out hepatoma. We are going to continue lactulose, which we are going to increase to 20 g twice a day. Continue Venofer 100 mg IV daily, folic acid 1 mg daily, furosemide 40 mg IV twice a day, lactulose 20 g twice a day, multivitamin one tablet daily, propranolol 60 mg daily, Xifaxan 550 mg twice a day, sodium bicarbonate 1300 mg daily, Aldactone 25 mg twice a day, and thiamine [address] Jose Munoz is seeing the patient from the Gastroenterology point of view. We are going to consult Dr. Jewels Laguerre, Hematology-Oncology because of the concern about hepatoma because of the liver lesions. The patient understands that and he was going to go home, but he understands he needs to stay for further workup. MD DARREL Najera/KELLY /[id number]
--- NOTE | 2019-08-01 15:41 | NUR ---
MD IN TO SEE PATIENT, NO NEW ORDER RECEIVED.
--- NOTE | 2019-08-01 19:15 | NUR ---
Patient received awake, alert, lying quietly in bed. no c/o pain noted. pm assessment. patient instructed to call for assistance when needed.
--- NOTE | 2019-08-01 22:51 | Diagnostic Imaging Report ---
MRI ABDOMEN WITHOUT CONTRAST TECHNIQUE: Multiplanar, multi-sequence MR images of the abdomen and pelvis were obtained without intravenous contrast. CLINICAL HISTORY: Concern for liver mass. COMPARISON: Abdominal ultrasound 07/28/2019, CT 07/27/2019 FINDINGS: Evaluation is limited due to lack of intravenous contrast. LIVER: Subtle nodular contour of the liver. Heterogeneous mass centered in hepatic segment 4 measures a x 10.6 cm (series 5 image 12). Additional adjacent mass centered in hepatic segments 2/3 measures up to 10 x 7.2 cm (image 19). The masses result in displacement of the regional vascular structures. Few nonspecific hyperintense foci within the right hepatic lobe measure up to 2.2 cm (image 20). BILIARY: No discrete biliary ductal dilatation. PANCREAS: Suboptimally evaluated. No discrete mass. SPLEEN: Upper limit of normal in size. ADRENALS: No nodules. KIDNEYS: The left kidney is atrophic. No hydronephrosis. PERITONEUM / RETROPERITONEUM: Large ascites. Nodularity of the anterior omentum. LYMPH NODES: Limited evaluation. No gross adenopathy. VESSELS: Limited evaluation. Grossly unremarkable. BONES AND SOFT TISSUES: No abnormal bone marrow signal. No soft tissue abnormalities. IMPRESSION: 1. Limited study due to lack of intravenous contrast enhancement. 2. Cirrhotic liver with large adjacent liver masses as described above. LI-RAD characterization of the lesions cannot be performed due to lack of intravenous contrast. Nevertheless, the lesions are strongly concerning for primary hepatocellular carcinoma. Correlation with serum alpha-fetoprotein level is recommended. 3. Large ascites. Nonspecific nodularity of the anterior omentum which may reflect chronic inflammatory change versus peritoneal carcinomatosis. Signed by: Ajay Cochran MD on 08/01/2019 10:48 PM
[2019-08-02] VITALS (8 sets, daily range): BP systolic 104–118; BP diastolic 58–72
[2019-08-02 06:07] LABS: ALBUMIN 1.6 g/dL (3.5-5.0); ALBUMIN/GLOBULIN RATIO 0.4 (0.8-2.0); ANION GAP 15.9 mmol/L (8-16); CALCIUM 8.4 mg/dL (8.4-10.2); CREATININE, SERUM 2.83 mg/dL (0.72-1.25); POTASSIUM 3.9 mmol/L (3.5-5.1)
--- NOTE | 2019-08-02 07:13 | NUR ---
PATIENT IN BED RESTING WITH NO S/S OF DISCOMFORT. CALL LIGHT AT REACH.
[2019-08-02] MEDS: FUROSEMIDE INJ 10 MG/ML 4 ML VIAL IV SCH ×2 (09:13→21:27)
[2019-08-02] MEDS: FOLIC ACID 1 MG TAB PO SCH (09:13)
[2019-08-02] MEDS: IRON SUCROSE 100 MG in SODIUM CHLORIDE 0.9% 100 ML 100 ML IV SCH (09:13)
[2019-08-02] MEDS: SPIRONOLACTONE 25 MG TAB PO SCH ×2 (09:13→17:18)
[2019-08-02] MEDS: RIFAXIMIN 550 MG TABLET PO SCH ×2 (09:14→17:18)
[2019-08-02] MEDS: SODIUM BICARBONATE 650 MG TAB PO SCH (09:14)
[2019-08-02] MEDS: THIAMINE HCL 100 MG TAB PO SCH (09:14)
[2019-08-02] MEDS: LACTULOSE SYRUP 20 GM/30 ML UDC PO SCH ×2 (09:14→17:18)
[2019-08-02] MEDS: MULTIVITAMINS/MINERALS TAB PO SCH (09:14)
[2019-08-02] MEDS: PROPRANOLOL HCL 60 MG ER CAP PO SCH (09:15)
--- NOTE | 2019-08-02 11:07 | NUR ---
CONSENT SIGNED FOR LIVER BIOPSY. RADIOLOGY NOTIFIED.
--- NOTE | 2019-08-02 11:49 | Progress Note ---
DATE: Internal Medicine Progress Note SUBJECTIVE: The patient is feeling better. The patient has been seen by Dr. Laguerre. We are going to do a liver biopsy because of two tumor behind the liver, possible hepatoma. PHYSICAL EXAMINATION: VITAL SIGNS: Blood pressure 113/64, , respiratory rate 18 per minute, heart rate is 55 per minute, oxygen saturation is 100%. HEART: Showed regular rhythm. Normal S1, S2 sound. LUNGS: Clear bilaterally. ABDOMEN: Soft, less distended. EXTREMITIES: Show 2+ edema. LABORATORY DATA: On the CBC; white blood count 9.76, hemoglobin 10.7, hematocrit 33.5, platelet count of 215,000. On the BMP; sodium 139, potassium 3.9, chloride 108, CO2 19, BUN 61, creatinine 2.3, GFR is only 22, calcium 8.4. AST, total bilirubin 7.2, AST 92, ALT 61, alkaline phosphatase 774. Ammonia level is 206. Total protein 5.6, albumin 1.6, globin 3.9. FINAL IMPRESSION: 1. Decompensated cirrhosis secondary to alcohol abuse. 2. Acute on chronic renal failure stage 4 secondary to hepatorenal syndrome. 3. Anemia of chronic disease. 4. Ascites. 5. Portal hypertension. 6. Tumors on the liver, rule out hepatoma. 7. Hepatorenal syndrome. PLAN OF TREATMENT: Dr. Laguerre has been consulted from the Oncology point of view. He is going to get Radiology involved to do a liver biopsy. In the meantime continue iron sucrose which is Venofer 100 mg IV daily for iron infusion. Continue folic acid 1 mg daily, furosemide 40 mg IV twice a day, lactulose 20 g twice a day. Continue multivitamin one tablet daily, propranolol 60 mg daily, Xifaxan 550 mg twice a day, sodium bicarbonate 1300 mg daily, Aldactone 25 mg twice a day, thiamine 100 mg daily. Prognosis is extremely poor of course due to the decompensated liver and possible hepatoma on top of everything else. We are going to wait for the biopsy report by order by Dr. Laguerre. MD DARREL Najera/MODL /[id number]
--- NOTE | 2019-08-02 13:20 | NUR ---
PATIENT OFF UNIT TO RADIOLOGY.
[2019-08-02] MEDS ORDERED: MIDAZOLAM HCL 2 MG/2 ML VIAL ONE (13:28)
[2019-08-02] MEDS ORDERED: FENTANYL CITRATE/PF 100MCG/2 ML INJ ONE (13:28)
--- NOTE | 2019-08-02 15:10 | Diagnostic Imaging Report ---
Ultrasound guided liver mass biopsy, 08/02/2019. Pre-procedure diagnosis: Left hepatic mass. Post-procedure diagnosis: Same Comparison: MRI abdomen 08/01/2019, ultrasound 07/30/2019. Radiologist: Robert Gonzalez MD Brick Veneer Maker: None Sedation: Moderate sedation was administered. 0.5 mg of Versed and 25 mcg fentanyl IV was used for moderate sedation monitored under my direction. Total intraservice time of the sedation was 30 minutes. The patient's vital signs were monitored throughout the procedure and recorded in the patient's medical record by the nurse. Anesthesia: 1% Xylocaine local anesthesia. Technique/Specimen removed: After informed consent was obtained, the access site was prepped and draped with the standard maximal sterile barrier technique. The skin was anesthetized with 1% lidocaine. A large heterogeneous mass in the left hepatic lobe was identified. 3 samples were obtained using 18-gauge core biopsy needle with ultrasound guidance. Postbiopsy scan demonstrates no evidence of hematoma or active bleeding. Complication: None. Estimated Blood Loss: Less than 1 cc. Graft/Implants: None Impression: Ultrasound guided liver mass biopsy performed with conscious sedation. Signed by: Robert Gonzalez on 08/02/2019 3:07 PM
--- NOTE | 2019-08-02 15:16 | Consultation ---
DATE OF CONSULTATION: 08/01/[address] Enrique Mckinley HISTORY OF PRESENT ILLNESS: Mr. Mercer is a 68-year-old male, referred to me for evaluation of hepatoma. The patient had presented with abdominal pain. Subsequently, a workup showed the patient to have liver masses consisting of lesions 10.6 cm, additional adjacent mass 10 x 7.2 cm. Multiple other masses 2.2 cm, subsequently referred to me for further evaluation and treatment. SOCIAL HISTORY: History of alcohol intake. FAMILY HISTORY: Noncontributory. ALLERGIES: REPORTED NONE. MEDICATIONS: At this time consist of: 1. Folic acid. 2. Lasix. 3. Iron sucrose. 4. Lactulose. 5. Multivitamins. 6. Inderal. 7. Xifaxan. 8. Sodium bicarbonate. 9. Aldactone. 10. Thiamine. REVIEW OF SYSTEMS: HEENT: Normal. CARDIAC: Normal. RESPIRATORY: Normal. GI: Hepatoma. : Normal. MUSCULOSKELETAL: Normal. SKIN AND BREASTS: Normal. NEUROENDOCRINE: Essentially normal. PHYSICAL EXAMINATION: GENERAL: A moderately-built male. NECK: No adenopathy. HEART: Within normal limits. LUNGS: Clear. ABDOMEN: Obese. GI: Ascites is felt. RECTAL: Deferred. CENTRAL NERVOUS SYSTEM: Essentially normal. LABORATORY DATA: Lab shows hemoglobin of 12.6, hematocrit of 40.1, white count of 9900, platelets 236,000, and MCHC high at 32.6. Chemistry showed sodium of 141, potassium 4.5, chloride 115, CO2 of 15, BUN 54, and creatinine 3.6. Bilirubin 8.1, SGOT 56, SGPT 47, alkaline phosphatase 549, total protein 6.7, albumin 2.0, and globulin is 4.7. B12 above 2000. Alpha-fetoprotein reported at 2.1. Ferritin is high at 340. IMPRESSION: 1. Anemia. 2. Chronic renal failure. 3. Hyperbilirubinemia. 4. Hypoalbuminemia. 5. Hyperglobulinemia. 6. Hyperlipidemia. 7. Multicentric hepatoma. 8. Coagulopathy with INR 2.55, however, reduced to 1.1. SUGGESTIONS: Suggest a liver biopsy as the alpha-fetoprotein is very low. In the best supportive care all treatment with Nexavar, this was discussed twice. He wants to proceed with Nexavar. Prognosis remains extremely poor. MD HIRA Ambrosio/KELLY /[id number] cc: MD Garcia Samaniego MD
--- NOTE | 2019-08-02 15:19 | NUR ---
PATIENT BACK TO UNIT FROM RADIOLOGY. HAD A LIVER BIOPSY, BAND AID DRY AND INTACT TO MID EPIGASTRIC AREA. PATIENT DENIED PAIN AT THIS TIME. V/S 97.9-53-18-118/70 AND 100% ON RA. IN BED WITH CALL LIGHT AT REACH.
[2019-08-03] VITALS (8 sets, daily range): BP systolic 95–128; BP diastolic 52–76
--- NOTE | 2019-08-03 07:15 | NUR ---
PATIENT IN BED RESTING WITH NO S/S OF DISTRESS. EDEMA REMAINS TO LOWER EXTREMITIES. BAND AID DRESSING TO EPIGASTRIC AREA DRY AND INTACT. BED IN LOWER POSITION, CALL LIGHT AT REACH.
[2019-08-03] MEDS: PROPRANOLOL HCL 60 MG ER CAP PO SCH (09:00)
[2019-08-03] MEDS: SPIRONOLACTONE 25 MG TAB PO SCH ×2 (09:07→17:36)
[2019-08-03] MEDS: THIAMINE HCL 100 MG TAB PO SCH (09:09)
[2019-08-03] MEDS: RIFAXIMIN 550 MG TABLET PO SCH ×2 (09:09→17:36)
[2019-08-03] MEDS: MULTIVITAMINS/MINERALS TAB PO SCH (09:09)
[2019-08-03] MEDS: SODIUM BICARBONATE 650 MG TAB PO SCH (09:09)
[2019-08-03] MEDS: FOLIC ACID 1 MG TAB PO SCH (10:33)
[2019-08-03] MEDS: IRON SUCROSE 100 MG in SODIUM CHLORIDE 0.9% 100 ML 100 ML IV SCH (10:33)
[2019-08-03] MEDS: LACTULOSE SYRUP 20 GM/30 ML UDC PO SCH ×2 (10:33→17:36)
--- NOTE | 2019-08-03 11:19 | NUR ---
NEW IV 22GAUGE INSERTED TO RIGHT FOREARM, PATIENT TOLERATED PROCEDURE WELL.
--- NOTE | 2019-08-03 11:39 | Progress Note ---
DATE: Internal Medicine Progress Note SUBJECTIVE: The patient had a liver biopsy. He has had multicentric hepatoma, so we are waiting on the biopsy report. Prognosis is extremely poor due to the combination of cirrhosis of the liver. Most likely, hepatoma, possible carcinomatosis of the peritoneum and also hepatorenal syndrome. I discussed the case with Dr. Laguerre. Options are very limited. Prognosis is very poor. The patient might need hospice. PHYSICAL EXAMINATION: VITAL SIGNS: Blood pressure 102/59, temperature 97.4, heart rate 48 per minute, respiratory rate 18 per minute, O2 saturation 100%. ABDOMEN: Soft, slightly distended. EXTREMITIES: Show 2+ bilateral pedal edema. LABORATORY DATA: On the BMP; sodium 139, potassium 3.9, chloride 108, CO2 19, BUN 61, creatinine 2.3, calcium 8.4. AST 92, ALT 61, total bilirubin 7.2, ammonia level 168. COVID-19 test negative. Hepatitis profile completely negative. Antimitochondrial antibody less than 20. Peritoneal fluid cultures essentially unremarkable. No evidence of any growth. Blood cultures negative. Urine cultures also have been done. They were negative. The patient already had a liver biopsy. We are waiting on the report, which can take five days at least. The patient might be able to go home tomorrow. Follow up with Dr. Laguerre, the Hematology Oncology as an outpatient. Prognosis is very poor. FINAL IMPRESSION: 1. Decompensated cirrhosis. 2. Acute on chronic renal failure stage 4. 3. Chronic disease of anemia. 4. Ascites. 5. Portal hypertension. 6. Hepatorenal syndrome, most likely a hepatoma. PLAN OF TREATMENT: The patient will continue with iron infusion 100 mg daily. He is on folic acid 1 mg daily, furosemide 40 mg IV push twice a day, lactulose 20 g twice a day. Continue multivitamin one tablet daily, propranolol 60 mg daily. We are going to decrease to 20 mg twice a day because of the bradycardia. Continue Xifaxan 500 mg twice a day. Continue sodium bicarbonate 1300 mg daily, Aldactone 25 mg twice a day, and thiamine 100 mg daily. Tentative discharge for tomorrow. Follow up with Dr. Laguerre as an outpatient. Prognosis is very poor. He may be a hospice candidate at this point in time. MD DARREL Najera/KELLY /[id number]
--- NOTE | 2019-08-03 15:29 | NUR ---
PATIENT ASSISTED WITH SHOWER. SITTING IN CHAIR WATCHING TV. CALL LIGHT AT REACH.
[2019-08-03] MEDS: FUROSEMIDE 40 MG TAB PO SCH (18:01)
--- NOTE | 2019-08-03 19:19 | NUR ---
Received change of shift report from AM nurse. Walking rounds completed.
--- NOTE | 2019-08-03 19:27 | NUR ---
Received change of shift report from MARIIA bojorquez Walking rounds completed. Addendum: 08/03/19 at 1951 by Sangeetha Ochoa RN duplicate
[2019-08-04] VITALS: BP 109/65
--- NOTE | 2019-08-04 00:24 | NUR ---
Patient resting quitly. Denies pain at this time. Dr Munoz on the floor. No orders written. Continue monitor. Dressing dry and intact.
[2019-08-04] MEDS: FUROSEMIDE 40 MG TAB PO SCH (05:08)
--- NOTE | 2019-08-04 05:17 | NUR ---
Patient resting quitly at this time. Continue monitor.
[2019-08-04 06:24] LABS: ALBUMIN 1.6 g/dL (3.5-5.0); ALBUMIN/GLOBULIN RATIO 0.4 (0.8-2.0); ANION GAP 16.8 mmol/L (8-16); CALCIUM 8.5 mg/dL (8.4-10.2); CREATININE, SERUM 3.13 mg/dL (0.72-1.25); POTASSIUM 3.8 mmol/L (3.5-5.1)
--- NOTE | 2019-08-04 06:50 | NUR ---
Bedside shift report, patient lying in bed with eyes closed. Respiration even and unlabored without SOB. Call light in reach
[2019-08-04 07:38] VITALS: BP 104/65
[2019-08-04] MEDS: FOLIC ACID 1 MG TAB PO SCH (08:44)
[2019-08-04] MEDS: SPIRONOLACTONE 25 MG TAB PO SCH (08:44)
[2019-08-04] MEDS: IRON SUCROSE 100 MG in SODIUM CHLORIDE 0.9% 100 ML 100 ML IV SCH (08:44)
[2019-08-04] MEDS: RIFAXIMIN 550 MG TABLET PO SCH (08:45)
[2019-08-04] MEDS: SODIUM BICARBONATE 650 MG TAB PO SCH (08:45)
[2019-08-04] MEDS: MULTIVITAMINS/MINERALS TAB PO SCH (08:45)
[2019-08-04] MEDS: LACTULOSE SYRUP 20 GM/30 ML UDC PO SCH (08:45)
[2019-08-04] MEDS: THIAMINE HCL 100 MG TAB PO SCH (08:45)
[2019-08-04] MEDS ORDERED: PROPRANOLOL HCL 40 MG TAB PO SCH (09:00)
[2019-08-04 09:46] VITALS: BP 104/65
[2019-08-04 11:16] VITALS: BP 104/62
--- NOTE | 2019-08-04 12:07 | NUR ---
Received a callback from Dr. Schuyler Munoz regarding discharge clearance- clearance received. F/U in 1-2 weeks.
--- NOTE | 2019-08-04 15:23 | NUR ---
Patient is to D/C home. Discharge education provided. Verbalized understanding. Home prescription medication give. Respiration even and unlabored without SOB. Transported via wheelchair with all personal belongings taken.
--- NOTE | 2019-08-05 02:26 | Discharge Summary ---
HOSPITAL COURSE: The patient is essentially a 68-year-old male, who had a past medical history positive for heavy alcohol abuse, history of tobacco abuse, came to the hospital complaining of increased swelling of the legs and abdominal distention. He was admitted to the hospital. Paracentesis was done and a large amount of fluid was removed from the abdomen. Fluid culture came back negative. The patient was found to have elevated liver function tests. BUN and creatinine were elevated. He was diagnosed with hepatorenal syndrome, also cirrhosis of the liver. He was also found to have tumors in the liver, most likely secondary to hepatoma. Liver biopsy was done and the report is pending. It will take 5 days before we get the report on the liver biopsy. The patient has been seen by Dr. Jose Munoz for Gastroenterology, Dr. Laguerre for Hematology/Oncology, and Dr. Lawrence for Renal Services. PHYSICAL EXAMINATION: HEART: Showed regular rhythm. Normal S1 and S2 sound. LUNGS: Clear bilaterally. ABDOMEN: Soft. EXTREMITIES: Show no evidence of cyanosis, edema, or trauma. VITAL SIGNS: Blood pressure is 104/62, temperature 97.1, heart rate 51 per minute, respiratory rate 18 per minute, oxygen saturation 100%. GENERAL: The patient is alert and oriented x3. LABORATORY DATA: On the blood work, we have CBC; white blood count 8.06, hemoglobin 10.7, hematocrit 33.5, and platelet count of 215,000. On the BMP; sodium 139, potassium 3.8, chloride 107, CO2 of 19, BUN 64, creatinine 3.13, GFR is 20, calcium 8.5, magnesium 2.0, total bilirubin 8.6, AST 142, ALT 74, alkaline phosphatase 903. Last ammonia level is 206. Total protein 5.8, albumin 1.6, globin 4.2, albumin and globulin ratio is 0.4. Lipase was normal at 53. Vitamin B12 is 2000. Folic acid is 10.9. Alpha fetoprotein has been checked and it was 2.1. MRI of the abdomen was done because of the liver tumors, which show chronic cirrhotic liver with liver masses as described above. Dissection of the lesion cannot be performed due to the lack of intravenous contrast. Nevertheless, lesions are strongly concerning for primary hepatocellular carcinoma, correlation with is recommended. Large ascites, nonspecific nodularity of the omentum, which might reflect chronic inflammatory changes peritoneal carcinomatosis. Chest x-ray showed low lung volumes, right basilar patchy opacity, most likely subsegmental atelectasis or superimposed aspiration pneumonia. FINAL IMPRESSION: 1. Cirrhosis of the liver with hepatoma. 2. Hepatoma. 3. Hepatorenal syndrome. 4. Anemia of chronic disease. 5. Increased ammonia levels. PLAN OF TREATMENT: The patient has been seen by Dr. Laguerre, Hematology/Oncology. Prognosis is grim, at least not a very good candidate for any type of treatment. The patient will follow up with Dr. Laguerre, Hematology/Oncology in a week. Follow up with me and Dr. Jose Munoz in 2 weeks. Of course, he was told to abstain from drinking. Continue with folic acid 1 mg daily, furosemide 40 mg twice a day, Aldactone 25 mg twice a day, lactulose 20 g twice a day, Xifaxan 550 mg twice a day, multivitamin one tablet daily, propranolol 20 mg daily due to portal hypertension. Also, continue sodium bicarbonate 1300 mg daily and thiamine 100 mg daily. As I said, very poor prognosis. The patient is aware of that. Biopsy of the liver has been done and the report is pending. It will take at least 5 days to be ready. Therefore, the patient is going to be discharged home and instructed to follow up with Dr. Laguerre, Hematology/Oncology, because most likely he has liver cancer with very poor prognosis, and follow with myself and with Dr. Jose Munoz. Diet is going to be renal diet. Enrique Mckinley MD LAS/MODL /[id number]
== END 2019-08-04 15:25 | disposition home or self-care (01) | DRG 432 ==
LOC: ER 12:41 → ERHOLD 15:20 → MED/SURG3 20:47
PROVIDERS: ADMIT Internal Medicine; ATTEND Internal Medicine
PROC: 0W9G3ZZ Drainage of Peritoneal Cavity, Percutaneous Approach (ICD-10-PCS; 2019-07-28)
PROC: 5A1D70Z Performance of Urinary Filtration, Intermittent, Less than 6 Hours Per Day (ICD-10-PCS; 2019-07-30)
PROC: 0FB23ZX Excision of Left Lobe Liver, Percutaneous Approach, Diagnostic (ICD-10-PCS; principal; 2019-08-02)
DX: K70.31 Alcoholic cirrhosis of liver with ascites (principal); K76.7 Hepatorenal syndrome; N18.4 Chronic kidney disease, stage 4 (severe); K76.6 Portal hypertension; N17.9 Acute kidney failure, unspecified; N39.0 Urinary tract infection, site not specified; D68.9 Coagulation defect, unspecified; E87.2 Acidosis; D63.8 Anemia in other chronic diseases classified elsewhere; R16.0 Hepatomegaly, not elsewhere classified; R74.0 Nonspecific elevation of levels of transaminase and lactic acid dehydrogenase [LDH]; I12.9 Hypertensive chronic kidney disease with stage 1 through stage 4 chronic kidney disease, or unspecified chronic kidney disease; E78.5 Hyperlipidemia, unspecified; F10.21 Alcohol dependence, in remission
CPT/HCPCS: 36415; 47000; 49083; 71045; 74176; 74181; 74470; 76705; 76770; 76942; 80053; 80061; 81001; 81050; 82103; 82105; 82140; 82390; 82550; 82553; 82575; 82607; 82728; 82746; 83540; 83605; 83690; 83735; 83880; 84080; 84100; 84156; 84466; 84484; 85025; 85045; 85610; 85730; 86255; 87040; 87070; 87086; 87205; 87635; 88112; 88305; 88307; 89051; 90732; 93005; 99284; J0692; J1756; J1940; J2250; J3010; J3411; J3430; J7030; J7050

== ENCOUNTER 2019-08-10 09:38 | Inpatient (IN) | payer MEDICARE, OTHER ==
[~2019-08-10] VITALS: Ht 167.6 cm; Wt 91.6 kg
[~2019-08-10 09:38] MED LIST: [UNRECOGNIZED DRUG - REMARK]
--- OUTSIDE RECORDS SUMMARY | 2019-08-10 09:41 | XMS REPORT ---
Author Author Formerly [facility] t Organization [facility] Address [address] [place] [address] Phone Unavailable Care Team Providers Care Trains Dispatcher Supervisor Name Role Phone NONSTAFF PCP Unavailable CATRINA JJ Attphys Unavailable CATRINA JJ Admphys Unavailable Advance Directives Directive Decision Effective Date Termination Date Comments Sour ce Yes N/A [facility] Problems Condition Name Condition Details Condition Category Status Onset Date Resolution Date Last Treatment Date Treating Clinician Comments Source Hepatic cirrhosis Problem [facility] Elevated transaminase measurement Problem [facility] Hyperbilirubinemia Problem [facility] Allergies, Adverse Reactions, Alerts This patient has no known allergies or adverse reactions. Social History Social Habit Start Date Stop Date Quantity Comments Source Sex Assigned At 1950 00:00:00 1950 00:00:00 Male [facility] Medications Ordered Medication Name Filled Medication Name Start Date Stop Da te Current Medication? Ordering Clinician Indication Dosage Frequency Signature (SIG) Comments Components Source Denies Hm Denies Hm 2019-08-03 00:00:00 No [facility] Vital Signs Vital Name Observation Time Observation Value Comments Source Body Temperature 2019-08-04 11:16:00 97.1 [degF] [facility] BMI (Body Mass Index) 2019-08-01 00:32:00 32.6 kg/m2 [facility] Weight 2019-07-30 00:08:00 202 [lb_av] [facility] Procedures Procedure Date / Time Performed Performing Clinician [facility] e Echo guide for biopsy 2019-08-02 00:00:00 [facility] Magnetic resonance imaging of abdomen without contrast 2019-07-16 7 00:00:00 [facility] US Liver 2019-07-30 00:00:00 [facility] US guided paracentesis 2019-07-28 00:00:00 [facility] Ultrasound, renal 2019-07-28 00:00:00 [facility] CT of abdomen and pelvis without contrast 2019-07-27 00:00:00 [facility] Plan of Care Planned Activity Planned Date Details Comments Source Goal Patient referral [code = 9863329 ] [facility] Goal Patient referral [code = 8242223 ] [facility] Goal Patient referral [code = 1158946 ] [facility] Goal Patient referral [code = 6547156 ] [facility] Instructions Cirrhosis [facility] Results Test Description Test Time Test Comments Results Result Comments Source Serum or plasma sodium measurement (moles/volume) 2019-08-04 05:25:00 Test Item Sodium Level (test code = 2951-2) 139 [facility] ([facility]oles/volume)2019-08-04 05:25:00* Test Item Value Reference Range Interpretation Comments Potassium Level (test code = 2823-3) 3.8 [facility] chloride measurement (moles/volume)2019-08-04 05:25:00* Test Item Value Reference Range Interpretation Comments Chloride Level (test code = 2075-0) 107 [facility] carbon dioxide, total measurement (moles/volume)2019-08-04 05:25:00* Test Item Value Reference Range Interpretation Comments Carbon Dioxide Level (test code = 2028-9) 19 [facility] anion [id number] 05:25:00* Test Item Value Reference Range Interpretation Comments Anion Gap (test code = 86905-2) 16.8 [facility] urea nitrogen measurement (mass/volume)2019-08-04 05:25:00* Test Item Value Reference Range Interpretation Comments Blood Urea Nitrogen (test code = 3094-0) 64 [facility] creatinine measurement (mass/volume)2019-08-04 05:25:00* Test Item Value Reference Range Interpretation Comments Creatinine (test code = 2160-0) 3.13 [facility] urea nitrogen/creatinine mass [id number] 05:25:00* Test Item Value Reference Range Interpretation Comments BUN/Creatinine Ratio (test code = 3097-3) 20 [facility] filtration rate (GFR) ebtghijpxenxb2617-33-57 05:25:00* Test Item Value Reference Range Interpretation Comments Estimat Glomerular Filtration Rate (test code = 200367262) 20 [facility] HospitalGlucose rpoydlmkaas0684-39-99 05:25:00* Test Item Value Reference Range Interpretation Comments Glucose Level (test code = SWG5363) 94 [facility] calcium measurement (mass/volume)2019-08-04 05:25:00* Test Item Value Reference Range Interpretation Comments Calcium Level (test code = 15477-2) 8.5 [facility] total bilirubin measurement (mass/volume)2019-08-04 05:25:00* Test Item Value Reference Range Interpretation Comments Total Bilirubin (test code = 1975-2) 8.6 [facility] procedure less than one hour svneefoy3518-34-52 05:25:00* Test Item Value Reference Range Interpretation Comments Aspartate Amino Transf (AST/SGOT) (test code = Aspartate Amino Transf (AST/SGOT)) 142 [facility] alanine aminotransferase measurement (enzymatic activity/volume)2019-08-04 05:25:00* Test Item Value Reference Range Interpretation Comments Alanine Aminotransferase (ALT/SGPT) (test code = 1742-6) 74 [facility] HospitalAmmonia Vku-kDgq5102-25-20 05:25:00* Test Item Value Reference Range Interpretation Comments Ammonia (test code = 26595-7) 206 [facility] protein measurement (mass/volume)2019-08-04 05:25:00* Test Item Value Reference Range Interpretation Comments Total Protein (test code = 2885-2) 5.8 [facility] albumin measurement (mass/volume)2019-08-04 05:25:00* Test Item Value Reference Range Interpretation Comments Albumin (test code = 1751-7) 1.6 [facility] globulin measurement (mass/volume) 2019-08-04 05:25:00* Test Item Value Reference Range Interpretation Comments Globulin (test code = 36495-4) 4.2 [facility] albumin/globulin mass zbutm0483-85-39 05:25:00* Test Item Value Reference Range Interpretation Comments Albumin/Globulin Ratio (test code = 1759-0) 0.4 [facility] alkaline phosphatase measurement (enzymatic activity/volume)2019-08-04 05:25:00* Test Item Value Reference Range Interpretation Comments Alkaline Phosphatase (test code = 6768-6) 903 [facility] magnesium measurement (mass/volume)2019-08-03 05:25:00* Test Item Value Reference Range Interpretation Comments Magnesium Level (test code = 41576-6) 2.0 [facility] HospitalBIOPSY JMMDU7573-35-58 15:04:00 [facility] [address] [address] Patient Name: EKATERINA CARRILLO MR #: [id number] : 1950 Age/Sex: 68/M Req #: [id number] Adm Physician: CATRINA JJ MD Ordered by: HIPOLITO XIAO MD Report #: [id number] Location: MED/SURG3 Room/Bed: [facility] Procedure: [id number] IR/B IOPSY LIVER Exam Date: 08/02/19 Exam Time: 1349 REPORT STATUS: Signed Ultrasound guided liver mass biopsy, 08/02/2019. Pre-procedure diagnosis: Left hepat ic mass. Post-procedure diagnosis: Same Comparison: MRI abdomen 020, ultrasound 07/30/2019. Radiologist: Robert Gonzalez MD Realty Specialist: Aletha hayward Sedation: Moderate sedation was administered. 0.5 mg of Versed and 25 m cg fentanyl IV was used for moderate sedation monitored under my direction. To nahomy intraservice time of the sedation was 30 minutes. The patient's vital sign s were monitored throughout the procedure and recorded in the patient's medica l record by the nurse. Anesthesia: 1% Xylocaine local anesthesia. Te chnique/Specimen removed: After informed consent was obtained, the access site was prepped and draped with the standard maximal sterile barrier technique. T he skin was anesthetized with 1% lidocaine. A large heterogeneous mass in the left hepatic lobe was identified. 3 samples were obtained using 18-gauge core biopsy needle with ultrasound guidance. Postbiopsy scan demonstrates no eviden ce of hematoma or active bleeding. Complication: None. Estimated Blood Loss: Less than 1 cc. Graft/Implants: None Impression: Ultrasou nd guided liver mass biopsy performed with conscious sedation. Signed by: Neva Gonzalez on 08/02/2019 3:07 PM Dictated By: ROBERT GONZALEZ MD Electron ically Signed By: ROBERT GONZALEZ MD on 08/02/19 9888 Transcribed By: KT on 08/02/19 7236 COPY TO: HIPOLITO XIAO MD MRI ABDOMEN WO 2019-08-01 22:37:[address] [address] Patient Name: EKATERINA CARRILLO MR #: [id number] : 1950 Age/Sex: 68/M [id number] Req #: [id number] Adm Physician: CATRINA JJ MD Ordered by: MAYRA BARRY MD Report #: [id number] Location: MED/SURG3 Room/Bed: [facility] Procedure: [id number] MRI/MRI ABDOMEN WO Exam Date: Exam Time: REPORT STATUS: Signed MRI ABDOMEN WITHOUT CONTRAST TECHNIQUE: Multiplanar, multi-sequence MR images of the abdomen and pelvis were obtained without intravenous contrast. CLINICAL HISTORY: Concern for liver mass. COMPARISON: Abdominal ultrasound 07/28/2019, CT 07/27/2019 FINDINGS: Evaluation is limited due to lack of intravenous contrast. LIVER: Subtle nodular contour of the liver. Heterogeneous mass centered in hepatic segment 4 measures a x 10.6 cm (series 5 image 12). Additional adjacent mass centered in hepatic segments 2/3 measures up to 10 x 7.2 cm (image 19). The masses result in displacement of the regional vascular structures. Few n onspecific hyperintense foci within the right hepatic lobe measure up to 2.2 c m (image 20). BILIARY: No discrete biliary ductal dilatation. PANCREAS : Suboptimally evaluated. No discrete mass. SPLEEN: Upper limit of normal i n size. ADRENALS: No nodules. KIDNEYS: The left kidney is atrophic. No hydronephrosis. PERITONEUM / RETROPERITONEUM: Large ascites. Nodularity of the anterior omentum. LYMPH NODES: Limited evaluation. No gross adenopat hy. VESSELS: Limited evaluation. Grossly unremarkable. BONES AND SOFT TISSUES: No abnormal bone marrow signal. No soft tissue abnormalities. IMPRESSION: 1. Limited study due to lack of intravenous contrast enhan cement. 2. Cirrhotic liver with large adjacent liver masses as described ab ove. LI-RAD characterization of the lesions cannot be performed due to lack of intravenous contrast. Nevertheless, the lesions are strongly concerning for p rimary hepatocellular carcinoma. Correlation with serum alpha-fetoprotein leve l is recommended. 3. Large ascites. Nonspecific nodularity of the anterio r omentum which may reflect chronic inflammatory change versus peritoneal carc inomatosis. Signed by: Gurinder Schultz MD on 08/01/2019 10:48 PM Dict ated By: GURINDER SCHULTZ MD 47 COPY TO: LINDA BARRY MD Serum or plasma alpha 1 antitrypsin measurement (mass/volume) 2019-07-31 05:50:00* Test Item Value Reference Range Interpretation Comments Uetue-8-Uvnzbzmjzlx (test code = 1825-9) 217 [facility] [id number] 16:13:00 [address] [address] Patient Name: EKATERINA CARRILLO MR #: [id number] : 1950 Age/Sex: 68/M Req #: [id number] Adm Physician: CATRINA JJ MD Ordered by: CATRINA JJ MD Report #: [id number] Location: [facility] Room/Bed: [facility] Procedure: [id number] US/US LI AURE Exam Date: 07/30/19 Exam Time: 1432 REPORT STATUS: Signed EXAM: Right upper quad rant abdominal ultrasound INDICATION: Hyperbilirubinemia COMPARISON: CT a bdomen and pelvis of 07/27/2019 TECHNIQUE: Transverse and longitudinal images of the right upper quadrant abdomen were obtained FINDINGS: Liver: Size: 17.8 cm in the right midclavicular line Appearance: Normal echogenici ty, nodular contour Mass: Hypoechoic right hepatic mass measures 8.0 x 9.6 x 6 .1 cm. Ill-defined left hepatic mass measures 5.5 x 6.3 x 8.0 cm. Gallbla dder: No gallbladder distension, pericholecystic fluid, wall thickening, stone , or reported sonographic Chambers's sign. Gallbladder wall measures 3 mm. B ile Ducts: Intrahepatic Ducts: No dilatation Extrahepatic Ducts: Common bile duct measures 4 mm Pancreas: Visualized portions of the pancreatic head, ne ck and proximal body are normal. Kidney: The right kidney measures 10.2 cm without evidence of hydronephrosis or stone. Vessels: Aorta: Visualize d portions are normal Inferior Vena Cava: Visualized portions are normal Ju n Portal Vein: 0.9 cm, normal size with hepatopetal flow. Free Fluid: Mod erate abdominal ascites. IMPRESSION: Hepatic cirrhosis. Right and left li aure masses are concerning for hepatic malignancy in this cirrhotic patient. Re commend liver MRI with and without contrast for further evaluation. Moder ate abdominal ascites. Signed by: Deyvi Judd MD on 07/30/2019 4:18 PM Dictated By: DEYVI JUDD MD 17 COPY TO: LENARD JJ MD Serum or plasma alkaline phosphatase measurement (enzymatic activity/volume)2019-07-30 05:15:00* Test Item Value Reference Range Interpretation Comments Alkaline Phosphatase (test code = 6768-6) 716 [facility] intestinal alkaline phosphatase/total alkaline phosphatase [id number] 05:15:00* Test Item Value Reference Range Interpretation Comments Alkaline Phosphatase Iso-Intestine (test code = 29011-5) 4 [facility] plasma bone alkaline phosphatase/alkaline phosphatase.bpdke3144-06-39 05:15:00* Test Item Value Reference Range Interpretation Comments Alkaline Phosphatase Iso-Bone (test code = 12368-0) 43 [facility] plasma liver alkaline phosphatase/total alkaline phosphatase kchta9756-25-80 05:15:00* Test Item Value Reference Range Interpretation Comments Alkaline Phosphatase Iso-Liver (test code = 60504-9) 53 [facility] HospitalPhosphorus wymwvneacvk1203-54-81 05:05:00 * Test Item Value Reference Range Interpretation Comments Phosphorus Level (test code = CTF7151) 4.8 [facility] Hospital[facility] protein measurement (mass/volume) 2019-07-28 17:00:00* Test Item Value Reference Range Interpretation Comments Urine Random Total Protein (test code = 2888-6) < 6.8 [facility] HospitalUrine collection time rcueravl8571-70-42 17:00:00* Test Item Value Reference Range Interpretation Comments Urine Collection Time (test code = JNA0896) 24 [facility] HospitalTimed urine specimen umnliv9136-85-94 17:00:00* Test Item Value Reference Range Interpretation Comments Urine Total Volume (test code = 55974-7) 3000 [facility] HospitalUrine creatinine measurement (mass/volume)2019-07-28 17:00:00* Test Item Value Reference Range Interpretation Comments Urine Creatinine (test code = 2161-8) 22.73 [facility] hour urine creatinine measurement (mass/time)2019-07-28 17:00:00* Test Item Value Reference Range Interpretation Comments Urine Creatinine 24 Hour (test code = 2162-6) 682 [facility] Hospital[facility]al creatinine clearance measurement 2019-07-28 17:00:00* Test Item Value Reference Range Interpretation Comments Creatinine Clearance (test code = 47025-6) 13 [facility] urine protein measurement (mass/time)2019-07-28 17:00:00* Test Item Value Reference Range Interpretation Comments Urine Total Protein 24 Hour (test code = 2889-4) 203.94351 [facility] RENAL RETROPERITONEAL RIAZ2313-39-31 16:41:00 [facility] [address] [address] Patient Name: EKATERINA CARRILLO MR #: [id number] : 1950 Age/Sex: 68/M Req #: [id number] Adm Physician: CATRINA JJ MD Ordered by: ROZ LENTZ MD Report #: [id number] Location: MED/SURG3 Room/Bed: 284-1 Procedure: US/US RENAL RETROPERITONEAL COMP Exam Date: 07/28/19 Exam Time: 155 REPORT STATUS: Signed EXAM: Renal Ultrasound INDICATION: kidmey failure [id number] COMPARISON: None TECHNIQUE: Transverse and longitudinal images of the kidneys and bladder were obtained. FINDINGS: Right Kidney: Length: 10.6 cm Appearance: Normal echogenicity. Collecting system: No h ydronephrosis Stones: None Cyst/Mass: None Left Kidney: Length: 6.2 cm Appearance: Normal echogenicity. Collecting system: No hydronephrosis Stones: None Cyst/Mass: None Bladder: No mass or calculi. Bilateral u reteral jets visualized. Prevoid volume estimate of 34 cc. The prostate m easures 1.6 x 1.4 x 2.5 cm with volume estimate of 3 cc. Small volume ascit es. IMPRESSION: No hydronephrosis or renal calculi. Atrophic left ki dney, likely congenital. Small volume ascites. Signed by: Deyvi Judd MD on 07/28/2019 4:43 PM Dictated By: DEYVI JUDD MD 42 Transcribed By: KT on 07/28/191642 COPY TO: ROZ LENTZ MD Fluoroscopic procedure less than one hour osnrbgrp5610-00-33 15:35:00* Test Item Value Reference Range Interpretation Comments Venous Blood pH (test code = Venous Blood pH) 7.302 [facility] HospitalFluoroscopic procedure less than one hour ouqocinv7806-87-33 15:35:00* Test Item Value Reference Range Interpretation Comments Venous Blood Partial Pressure CO2 (test code = Venous Blood Partial Pressure CO2) 31.7 [facility] HospitalFluoroscopic procedure less than one hour emaqitdw8022-26-53 15:35:00* Test Item Value Reference Range Interpretation Comments Venous Blood HCO3 (test code = Venous Blood HCO3) 15.7 [facility] HospitalFluoroscopic procedure less than one hour oggfgqqv9859-08-00 15:35:00* Test Item Value Reference Range Interpretation Comments Venous Blood Total Carbon Dioxide (test code = Venous Blood Total Carbon Dioxide) 17 [facility] HospitalFluoroscopic procedure less than one hour qudhotzu4612-30-32 15:35:00* Test Item Value Reference Range Interpretation Comments Venous Blood Base Excess (test code = Venous Blood Base Excess) -11 [facility]US GUIDED OSFWIULIZDWL4638-27-22 12:49:00 [facility] [address] [place] [address] Patient Name: EKATERINA CARRILLO MR #: [id number] : [birth year] Age/Sex: 68/M Req #: [id number] Adm Physician: CATRINA JJ MD Ordered by: MAYRA BARRY MD Report #: [id number] Location: [facility] Room/Bed: [facility] Procedure: [id number] US/US G UIDED PARACENTESIS Exam Date: 07/28/19 Exam Time: 02 10 REPORT STATUS: Signed PROCEDU RE: Ultrasound-guided paracentesis Procedural Personnel Attending physici an(s): Deyvi Judd MD Pre-procedure diagnosis: Ascites Post-procedure iza gnosis: Unchanged Indication: Ascites with pain or pressure symptoms Additio nal clinical history: None Complications: No immediate complications. IMPRESSION: Ultrasound-guided paracentesis with drainage of 9200 mL of sero us fluid. Plan: Resume care by clinical team. PROCEDURE SUMMARY: - Limited a bdominal ultrasound - Ultrasound-guided paracentesis - Additional procedure( s): None PROCEDURE DETAILS: Pre-procedure Consent: Informed consent for the procedure including risks, benefits and alternatives was obtained and time-out was performed prior to the procedure. Preparation: The site was prepa red and draped using maximal sterile barrier technique including cutaneous ant isepsis. Anesthesia/sedation Level of anesthesia/sedation: None Init ial abdominal ultrasound Initial abdominal ultrasound was performed. Finding s: Large ascites. A safe window for paracentesis was identified. Paracentes is Local anesthesia was administered. The peritoneal cavity was accessed and f luid return confirmed position. Ascites was drained. The catheter was then rem sweta, and a sterile bandage was applied. Paracentesis access technique: Real -time ultrasound guidance. Catheter placed: 5Fr Prisca Post-drainage ultrasoun d: No visible ascites Additional Details Additional description of proced ure: None Equipment details: None Specimens removed: Abdominal fluid Estim ated blood loss (mL): Minimal (<10cc) Standardized report: SIR_Paracentesis_v3 Attestation Signer name: Deyvi Judd MD I attest that I was present for the entire procedure. I reviewed the stored images and agree with the report as written. Signed by: Deyvi Judd MD on 07/28/2019 12:49 PM Dictated By: DEYVI JUDD MD 1249 Transcribed By: KT on 07/28/19 1249 COPY TO: MAYRA BARRY MD Specimen source identification of body [id number] 11:25:00* Test Item Value Reference Range Interpretation Comments Body Fluid Type (test code = 17420-1) [facility]AL [facility] 2019-07-28 11:25:00* Test Item Value Reference Range Interpretation Comments Body Fluid Color (test code = 6824-7) GREEN [facility] HospitalDetermination of appearance of body fluid 2019-07-28 11:25:00* Test Item Value Reference Range Interpretation Comments Body Fluid Appearance (test code = 9335-1) CLOUDY [facility] body fluid leukocytes count (number/volume)2019-07-28 11:25:00* Test Item Value Reference Range Interpretation Comments Body Fluid WBC (test code = 6743-9) 67 [facility] body fluid erythrocytes count (number/volume)2019-07-28 11:25:00* Test Item Value Reference Range Interpretation Comments Body Fluid RBC (test code = 6741-3) 99 [facility] body fluid neutrophils/100 debfhuvgfz1962-20-14 11:25:00* Test Item Value Reference Range Interpretation Comments Body Fluid Neutrophils (test code = 38061-6) 13 [facility] fluid lymphocyte eohbq9078-51-28 11:25:00* Test Item Value Reference Range Interpretation Comments Body Fluid Lymphocytes (test code = 14670369) 44 [facility] HospitalBody fluid monocyte qnvnp4065-30-80 11:25:00* Test Item Value Reference Range Interpretation Comments Body Fluid Monocytes (test code = 38582-7) 10 [facility] fluid other cells manual count 2019-07-28 11:25:00* Test Item Value Reference Range Interpretation Comments Body Fluid Other Cells (test code = 555923983) 33 [facility] HospitalTotal cell bqljg3225-34-16 11:25:00* Test Item Value Reference Range Interpretation Comments Body Fluid Total Cells Counted (test code = 01880-2) 100 [facility] HospitalCT [facility]EN/PELVIS [id number] 10:35:00 [facility] [address] [place] [address] Patient Name: EKATERINA CARRILLO MR #: [id number] : 1950 Age/Sex: 68/M Req #: [id number] Adm Physician: CATRINA JJ MD Ordered by: TERRANCE AGUSTIN NP Report #: [id number] Location: MED/SURG3 Room/Bed: 284-1 Procedure: [id number] CT/CT ABDOMEN/PELVIS WO Exam Date: 07/27/19 Exam Time: 154 3 REPORT STATUS: Signed EXAM: CT Abdomen and Pelvis WITHOUT intravenous contrast INDICATION: Abdominal di stention COMPARISON: None. TECHNIQUE: Abdomen and pelvis were scanned utilizing a multidetector helical scanner from the lung base to the pubic symp hysis without administration of IV contrast. Coronal and sagittal reformations were obtained. IV CONTRAST: None ORAL CONTRAST: Water COMPLICATIONS: None RADIATION DOSE: Total DLP: 729 mGy*cm Dose modulation, iterative reconstruction, and/or weight based adjustment of the m A/kV was utilized to reduce the radiation dose to as low as reasonably achieva ble. FINDINGS: LOWER THORAX: Right basilar subsegmental atelectasis. HEPATOBILIARY: Hepatic cirrhosis. Heterogeneous attenuation of liver parench yma, most notably the left liver and segment 4. Unremarkable gallbladder. SPLEEN: Splenomegaly to 15 cm. PANCREAS: No focal masses or ductal dilatat ion. ADRENALS: No adrenal nodules. KIDNEYS/URETERS: Severely atrophic lef t kidney, likely congenital. Unremarkable appearance of right kidney without r enal calculus or hydronephrosis. PELVIC ORGANS/BLADDER: Unremarkable. PER ITONEUM / RETROPERITONEUM: Large volume ascites in the abdomen and pelvis. LYM PH NODES: No lymphadenopathy. VESSELS: Scattered atherosclerotic calcification s of the nonaneurysmal abdominal aorta and major branches. GI TRACT: No a bnormal bowel thickening. No bowel obstruction. BONES AND SOFT TISSUES: No acute osseous injury. No suspicious lytic or blastic lesions. IMPRESSION: Hepatic cirrhosis and splenomegaly. Large volume ascites consistent with por nahomy hypertension. Heterogeneous appearance of the liver parenchyma, most notably on the left. Underlying liver mass cannot be excluded on this noncontr ast examination. Recommend liver mass protocol CT or MRI for further evaluatio n. Severely atrophic left kidney, likely congenital. Signed by: Amanda Judd MD on 07/28/2019 10:52 AM Dictated By: DEYVI JUDD MD 51 Transcribed By: KT on 07/28/191051 COPY TO: TERRANCE AGUSTIN NP Serum or plasma ceruloplasmin measurement (mass/volume)2019-07-28 10:06:00* Test Item Value Reference Range Interpretation Comments Ceruloplasmin (test code = 2064-4) 39.1 [facility] hepatitis A virus IgM antibody detection by wttsbzbwiid9160-55-32 10:06:00* Test Item Value Reference Range Interpretation Comments Hepatitis A IgM Antibody (test code = 52875-0) Negative [facility] hepatitis B virus surface antigen detection by chgptudgsac5502-81-28 10:06:00* Test Item Value Reference Range Interpretation Comments Hepatitis B Surface Antigen (test code = 5196-1) Negative [facility] hepatitis B virus core IgM antibody detection by oemkknnaquq3771-04-03 10:06:00* Test Item Value Reference Range Interpretation Comments Hepatitis B Core IgM Antibody (test code = 04971-4) Negative [facility] C virus antibody japaoknrz6177-97-80 10:06:00* Test Item Value Reference Range Interpretation Comments Hepatitis C Antibody (test code = 96567-7) 0.1 [facility] mitochondria M2 IgG antibody assay (units/volume)2019-07-28 10:06:00* Test Item Value Reference Range Interpretation Comments Anti-Mitochondrial Antibody (test code = 53432-1) <20.0 [facility] 09:48:00 [facility] [address] [place] [address] Patient Name: EKATERINA CARRILLO MR #: [id number] : 1950 Age/Sex: 68/M Req #: [id number] Adm Physician: CATRINA JJ MD Ordered by: TERRANCE AGUSTIN NP Report #: [id number] Location: MED/SURG3 Room/Bed: [facility] Procedure: [id number] DX/MORALES ST SINGLE (PORTABLE) Exam Date: 07/27/19 Exam Time: 1600 REPORT STATUS: Signed EXAMI NATION: CHEST SINGLE (PORTABLE) INDICATION: Shortness of breath C OMPARISON: None FINDINGS: LINES/TUBES:None LUNGS:The lung vo lumes are low. Right basilar patchy opacity. PLEURA:No pleural effusion or pneumothorax. MEDIASTINUM:The cardiomediastinal silhouette appears normal i n size and shape. BONES/SOFT TISSUES:No acute osseous injury. ABDOMEN: No free air under the diaphragm. IMPRESSION: Low lung volumes. Right basilar patchy opacity, more likely subsegmental atelectasis than superimposed aspiration or pneumonia. Signed by: Deyvi Judd MD on 07/28/2019 9:50 AM Dictated By: DEYVI JUDD MD 0950 COPY TO: ROBERT AGUSTIN BASKET HAND BRAIDER Blood leukocytes automated count (number/volume)2019-07-28 05:10:00* Test Item Value Reference Range Interpretation Comments White Blood Count (test code = 6690-2) 8.76 [facility] count (number/volume)2019-07-28 05:10:00* Test Item Value Reference Range Interpretation Comments Red Blood Count (test code = 789-8) 3.21 [facility] hemoglobin measurement (moles/volume)2019-07-28 05:10:00* Test Item Value Reference Range Interpretation Comments Hemoglobin (test code = 54813-4) 10.7 [facility] hematocrit (volume fraction)2019-07-28 05:10:00* Test Item Value Reference Range Interpretation Comments Hematocrit (test code = 4544-3) 33.5 [facility] erythrocyte mean corpuscular uqoosb3686-06-53 05:10:00* Test Item Value Reference Range Interpretation Comments Mean Corpuscular Volume (test code = 787-2) 104.4 [facility] eryth[facility] mean corpuscular hemoglobin (mass per erythrocyte)2019-07-28 05:10:00* Test Item Value Reference Range Interpretation Comments Mean Corpuscular Hemoglobin (test code = 785-6) 33.3 [facility] erythrocyte mean corpuscular hemoglobin concentration measurement (mass/volume)2019-07-28 05:10:00* Test Item Value Reference Range Interpretation Comments Mean Corpuscular Hemoglobin Concent (test code = 786-4) 31.9 [facility] HospitalRDW OdlMj-Xeg9227-16-13 05:10:00* Test Item Value Reference Range Interpretation Comments Red Cell Distribution Width (test code = 59559-1) 15.6 [facility] blood platelet count (count/volume)2019-07-28 05:10:00* Test Item Value Reference Range Interpretation Comments Platelet Count (test code = 777-3) 215 [facility] blood segmented neutrophil count as percentage of total woipnsasez2013-58-61 05:10:00* Test Item Value Reference Range Interpretation Comments Neutrophils (%) (Auto) (test code = 04657-5) 73.3 [facility] lymphocyte count as percentage ot total qmzzwqucuw0050-62-72 05:10:00* Test Item Value Reference Range Interpretation Comments Lymphocytes (%) (Auto) (test code = 736-9) 13.5 [facility] monocyte count as percentage of total ssslihakoq0638-94-15 05:10:00* Test Item Value Reference Range Interpretation Comments Monocytes (%) (Auto) (test code = 5905-5) 7.6 [facility] blood eosinophil count as percentage of total fhaoworgii9996-80-96 05:10:00* Test Item Value Reference Range Interpretation Comments Eosinophils (%) (Auto) (test code = 713-8) 3.9 [facility] basophil count as percentage of total bfjlmugkwu8510-37-87 05:10:00* Test Item Value Reference Range Interpretation Comments Basophils (%) (Auto) (test code = 706-2) 0.8 [facility] HospitalFluoroscopic procedure less than one hour yhmwlhpm0990-30-26 05:10:00* Test Item Value Reference Range Interpretation Comments IM GRANULOCYTES % (test code = IM GRANULOCYTES %) 0.9 [facility] blood neutrophil count 2019-07-28 05:10:00* Test Item Value Reference Range Interpretation Comments Neutrophils # (Auto) (test code = 751-8) 6.4 [facility] lymphocytes count (number/volume) 2019-07-28 05:10:00* Test Item Value Reference Range Interpretation Comments Lymphocytes # (Auto) (test code = 58502-6) 1.2 [facility] monocytes automated count (number/volume)2019-07-28 05:10:00* Test Item Value Reference Range Interpretation Comments Monocytes # (Auto) (test code = 742-7) 0.7 [facility] blood eosinophil count 2019-07-28 05:10:00* Test Item Value Reference Range Interpretation Comments Eosinophils # (Auto) (test code = 711-2) 0.3 [facility] blood basophil count (count/volume)2019-07-28 05:10:00* Test Item Value Reference Range Interpretation Comments Basophils # (Auto) (test code = 704-7) 0.1 [facility] HospitalFluoroscopic procedure less than one hour cycvnsyz3661-54-01 05:10:00* Test Item Value Reference Range Interpretation Comments Absolute Immature Granulocyte (auto (serge t code = Absolute Immature Granulocyte (auto) 0.08 [facility]Autom[facility] reticulocyte count as percentage of total neqmjowyfnbz5665-93-67 05:10:00* Test Item Value Reference Range Interpretation Comments Percent Reticulocyte Count (test code = 77340-9) 1.6 [facility] HospitalProthrombin time (PT) in platelet poor plasma by coagulation mhknh1764-96-26 05:10:00* Test Item Value Reference Range Interpretation Comments Prothrombin Time (test code = 5902-2) 15.0 [facility] HospitalINR in Platelet poor plasma by Coagulation zoglo0535-88-68 05:10:00* Test Item Value Reference Range Interpretation Comments Prothromb Time International Ratio (test code = 6301-6) 1.11 [facility] iron measurement (mass/volume)2019-07-28 05:10:00* Test Item Value Reference Range Interpretation Comments Iron Level (test code = 2498-4) 44 [facility] iron binding capacity measurement (mass/volume)2019-07-28 05:10:00* Test Item Value Reference Range Interpretation Comments Total Iron Binding Capacity (test code = 2500-7) 123 [facility] iron saturation measurement (mass fraction)2019-07-28 05:10:00* Test Item Value Reference Range Interpretation Comments Percent Iron Saturation (test code = 2502-3) 36 [facility] plasma transferrin measurement (mass/volume)2019-07-28 05:10:00* Test Item Value Reference Range Interpretation Comments Transferrin (test code = 3034-6) 88 [facility] plasma ferritin measurement (mass/volume)2019-07-28 05:10:00* Test Item Value Reference Range Interpretation Comments Ferritin (test code = 2276-4) 340.34 [facility]Blood cobalamin (vitamin B12) measurement (mass/volume)2019-07-28 05:10:00* Test Item Value Reference Range Interpretation Comments Vitamin B12 Level (test code = 33385-6) > 2000 [facility] or plasma sogqg-8-ulzgtblfpie.tumor marker measurement (mass/volume)2019-07-28 05:10:00* Test Item Value Reference Range Interpretation Comments Alpha Fetoprotein (test code = 81022-7) 2.1 [facility] plasma folate measurement (mass/volume)2019-07-28 05:10:00* Test Item Value Reference Range Interpretation Comments Folate (test code = 2284-8) 10.9 [facility] HospitalFluoroscopic procedure less than one hour qjeapkem7100-31-75 20:16:00* Test Item Value Reference Range Interpretation Comments Coronavirus (PCR) (test code = Coronavirus (PCR)) NOT DETECTED [facility] HospitalUrine color hpuiphsbrhycs9996-30-12 14:06:00* Test Item Value Reference Range Interpretation Comments Urine Color (test code = 5778-6) KAYODE [facility] HospitalUrine xwyetyi0224-65-97 14:06:00* Test Item Value Reference Range Interpretation Comments Urine Clarity (test code = 48006-6) CLOUDY [facility] Hospitalpecific gravity of Urine by Test strip 2019-07-27 14:06:00* Test Item Value Reference Range Interpretation Comments Urine Specific [place] (test code = 5811-5) 1.025 [facility] pH measurement by automated test huszl7418-62-56 14:06:00* Test Item Value Reference Range Interpretation Comments Urine pH (test code = 71095-7) 5.5 [facility] leukocyte esterase detection by befdebzb8812-17-03 14:06:00* Test Item Value Reference Range Interpretation Comments Urine Leukocyte Esterase (test code = 5799-2) TRACE [facility] HospitalUrine nitrite neftfrtcn0352-59-83 14:06:00* Test Item Value Reference Range Interpretation Comments Urine Nitrite (test code = 62048-4) NEGATIVE [facility] protein measurement by test strip (mass/volume)2019-07-27 14:06:00* Test Item Value Reference Range Interpretation Comments Urine Protein (test code = 5804-0) 2+ [facility] glucose lvchhyiyj3914-57-56 14:06:00* Test Item Value Reference Range Interpretation Comments Urine Glucose (UA) (test code = 2349-9) NEGATIVE [facility]Urine ketones detection by automated test kojez1050-32-26 14:06:00* Test Item Value Reference Range Interpretation Comments Urine Ketones (test code = 28493-7) TRACE [facility]rine urobilinogen measurement by test strip (mass/volume)2019-07-27 14:06:00* Test Item Value Reference Range Interpretation Comments Urine Urobilinogen (test code = 38521-4) 2 [facility] total bilirubin measurement (mass/volume)2019-07-27 14:06:00* Test Item Value Reference Range Interpretation Comments Urine Bilirubin (test code = 1978-6) LARGE [facility] HospitalU[facility] erythrocytes vcfsukbsm6198-75-56 14:06:00* Test Item Value Reference Range Interpretation Comments Urine Blood (test code = 54759-0) NEGATIVE [facility]Automated urine sediment leukocyte count by microscopy (number/high power field)2019-07-27 14:06:00* Test Item Value Reference Range Interpretation Comments Urine WBC (test code = 5821-4) 6-10 [facility] HospitalErythrocytes detection in urine sediment by light gohisitpxo6797-66-28 14:06:00* Test Item Value Reference Range Interpretation Comments Urine RBC (test code = 29476-4) NONE [facility] HospitalBacteria detection in urine sediment by light icsybtubux2934-03-77 14:06:00* Test Item Value Reference Range Interpretation Comments Urine Bacteria (test code = 83678-8) MANY [facility] HospitalEpithelial cells detection in urine sediment by light frfzwfntez9155-03-68 14:06:00* Test Item Value Reference Range Interpretation Comments Urine Epithelial Cells (test code = 03968-5) RARE [facility] HospitalAmorphous sediment detection in urine sediment by light zrlqkmyjqk4231-82-99 14:06:00* Test Item Value Reference Range Interpretation Comments Urine Amorphous Sediment (test code = 8246-1) MODERATE [facility] HospitalActivated partial thromboplastin time (aPTT) in platelet poor plasma by coagulation dpllv7447-98-79 13:55:00* Test Item Value Reference Range Interpretation Comments Activated Partial Thromboplast Time (test code = 08369-4) 23.0 [facility] HospitalFluoroscopic procedure less than one hour wmcvhrye2209-48-92 13:55:00* Test Item Value Reference Range Interpretation Comments Lactic Acid Level (test code = Lactic Acid Level) 1.8 [facility] plasma triglyceride measurement (mass/volume)2019-07-27 13:55:00* Test Item Value Reference Range Interpretation Comments Triglycerides Level (test code = 2571-8) 264 [facility] or plasma cholesterol measurement (mass/volume)2019-07-27 13:55:00* Test Item Value Reference Range Interpretation Comments Cholesterol Level (test code = 2093-3) 211 [facility] plasma cholesterol in LDL measurement (mass/volume)2019-07-27 13:55:00* Test Item Value Reference Range Interpretation Comments LDL Cholesterol (test code = 2089-1) 151 [facility] plasma cholesterol in HDL measurement (mass/volume)2019-07-27 13:55:00* Test Item Value Reference Range Interpretation Comments HDL Cholesterol (test code = 2085-9) 7 [facility] or plasma total cholesterol/cholesterol in HDL mass ysilr1433-32-91 13:55:00* Test Item Value Reference Range Interpretation Comments Cholesterol/HDL Ratio (test code = 9830-1) 30.1 [facility] HospitalBNP Eoi-tWfo8717-37-12 13:55:00* Test Item Value Reference Range Interpretation Comments B-Type Natriuretic Peptide (test code = 97574-7) 172.5 [facility] or plasma creatine kinase measurement (enzymatic activity/volume)2019-07-27 13:55:00* Test Item Value Reference Range Interpretation Comments Creatine Kinase (test code = 2157-6) 36 [facility] or plasma creatine kinase MB measurement (mass/volume)2019-07-27 13:55:00* Test Item Value Reference Range Interpretation Comments Creatine Kinase MB (test code = 95693-0) 2.70 [facility] HospitalTroponin I measurement by highly sensitive enzyme elposjnwbks2328-01-58 13:55:00* Test Item Value Reference Range Interpretation Comments Troponin I (test code = 53315-6) 0.011 [facility] plasma lipase measurement (enzymatic activity/volume)2019-07-27 13:55:00* Test Item Value Reference Range Interpretation Comments Lipase (test code = 3040-3) 53 [facility] HospitalBlood zibakcn2312-46-61 13:55:00* Test Item Value Reference Range Interpretation Comments Blood Culture (test code = 21105125) NO GROWTH AFTER 5 DAYS, FINAL REPORT [facility]
--- NOTE | 2019-08-10 10:05 | NUR ---
SEEN IN TRIAGE BY
[2019-08-10] MEDS ORDERED: PANTOPRAZOLE 40 MG 10ML VIAL IV STA (10:07)
[2019-08-10] MEDS ORDERED: ONDANSETRON HCL INJ 2MG/ML 2ML 2 MG/ML VIAL IV STA (10:07)
[2019-08-10 11:02] LABS: BASOPHILS # (AUTO) 0.1 (0.0-0.1); BASOPHILS % 0.4 % (0.0-1.0); EOSINOPHILS # (AUTO) 0.3 (0.0-0.4); HEMATOCRIT 33.8 % (38.2-49.6); LYMPHOCYTES # (AUTO) 1.5 (1.0-3.2); LYMPHOCYTES % 9.6 % (18.0-39.1); MEAN CORPUSCULAR HEMOGLOBIN 33.1 pg (28-32); MEAN CORPUSCULAR HGB CONC 32.5 g/dL (31-35); MEAN CORPUSCULAR VOLUME 101.8 fL (81-99); MONOCYTES # (AUTO) 0.9 (0.2-0.8); MONOCYTES % 5.5 % (4.4-11.3); NEUTROPHILS # (AUTO) 12.7 (2.1-6.9); NEUTROPHILS % 81.7 % (38.7-80.0); PLATELET COUNT 180 x10e3/uL (140-360); RED BLOOD COUNT 3.32 x10e6/uL (4.3-5.7); RED CELL DISTRIBUTION WIDTH 14.5 % (11.7-14.4)
[2019-08-10] MEDS: CEFEPIME 1GM/NS 0.9% 50 ML 50 ML IV SCH ×2 (11:02→22:34)
[2019-08-10 11:05] LABS: INR 1.03; PROTHROMBIN TIME 14.1 seconds (11.9-14.5)
[2019-08-10 11:06] LABS: PARTIAL THROMBOPLASTIN TIME 29.2 seconds (23.8-35.5)
[2019-08-10 11:14] LABS: ALBUMIN 1.6 g/dL (3.5-5.0); ANION GAP 18.9 mmol/L (8-16); CREATININE, SERUM 4.04 mg/dL (0.72-1.25); MAGNESIUM 2.3 MG/DL (1.3-2.1); POTASSIUM 4.9 mmol/L (3.5-5.1)
[2019-08-10] MEDS ORDERED: VANCOMYCIN 1GM/NS 250 ML 250 ML IV ONE (11:15)
[2019-08-10] MEDS ORDERED: SODIUM CHLORIDE 0.9% 500ML 500 ML IV ONE (11:15)
[2019-08-10 11:20] LABS: CREATINE KINASE MB 1.6 ng/mL (0-5.0)
[2019-08-10 11:39] LABS: ALBUMIN/GLOBULIN RATIO 0.4 (0.8-2.0); CALCIUM 8.2 mg/dL (8.4-10.2)
--- NOTE | 2019-08-10 12:26 | Emergency Department Note ---
History of Present Illnes History of Present Illness Chief Complaint: Respiratory History of Present Illness This is a 68 year old male STATES N/V AND ABD PAIN, SOB AND JAUNDICE. AAOX4. D/C ONE WK AGO FROM [facility] WITH DX LIVER CIRRHOSIS, HEPATOMA, AND HEPATORENAL SYNDROME. Historian: Patient Arrival Mode: Car Sunglass Clip Attacher Required: No Onset (how long ago): week(s) (1) Location: ABD, N/V Quality: PAIN Radiation: non-radiation Severity: moderate Onset quality: gradual Duration (how long): week(s) (1) Timing of current episode: constant Progression: worsening Chronicity: chronic Context: recent illness (RECENT ADMIT, FOUND HEPATOMA WHICH WAS BIOPSIED, HEPATORENAL AND TOLD VERY POOR PROGNOSIS) Relieving factors: none Exacerbating factors: none Associated symptoms: loss of appetite, malaise, nausea/vomiting, shortness of breath, weakness Treatments prior to arrival: none Past Medical/Family History Physician Review I have reviewed the patient's past medical and family history. Any updates have been documented here. Past Medical History Recent Fever: No Clinical Suspicion of Infectio: No New/Unexplained Change in Ment: No Past Medical History: Hypertension, Liver Disease Other Medical History: ALCOHOL ABUSE, HEPATOMA, HEPATORENAL SYNDROME Past Surgical History: None Social History Smoking Cessation: Former smoker Counseling Performed: No Alcohol Use: Daily (RECENTLY QUIT) Any Illegal Drug Use: No TB Exposure/Symptoms: No Physically hurt or threatened: No Family History Family history of heart diseas: No Other Last Tetanus: ood Any Pre-Existing Lines (PICC,: No Is patient up to date on immun: Yes Last Flu: UTD Last Pneumovax: UTD Review of Systems Review of Systems Constitutional: malaise, weakness EENTM: no symptoms Cardiovascular: no symptoms Respiratory: as per HPI, dyspnea, dyspnea on exertion Gastrointestinal: as per HPI, abdominal pain, nausea, vomiting Genitourinary: no symptoms Musculoskeletal: no symptoms Neurological: no symptoms Psychological: no symptoms Endocrine: no symptoms Hematological/Lymphatic: no symptoms Review of other systems All other systems reviewed and negative. Physical Exam Related Data Allergies: Coded Allergies: No Known Allergies (Unverified , 07/27/19) Triage Vital Signs Vital Signs Date Time Temp Pulse Resp B/P (MAP) Pulse Ox O2 Delivery O2 Flow Rate FiO2 08/10/19 10:03 97.1 66 18 92/66 100 Vital signs reviewed: Yes Physical Exam CONSTITUTIONAL Constitutional: ill appearing, other (APPEARS CHRONICALLY ILL) HENT HENT: normocephalic, atraumatic, oropharynx clear/moist, nose normal HENT L/R: left ext ear normal, right ext ear normal EYES Eyes: PERRL, scleral icterus NECK Neck: ROM normal PULMONARY Pulmonary: effort normal, other (DECR BS'S BILAT BASES) CARDIOVASCULAR Cardiovascular: regular rhythm, heart sounds normal, capillary refill normal, normal rate GASTROINTESTINAL Abdominal: soft, bowel sounds normal, tender (MILD BALDEMAR TENDERNESS WITHOUT R/G) GENITOURINARY Genitourinary: exam deferred SKIN Skin: warm, dry, jaundiced MUSCULOSKELETAL Musculoskeletal: ROM normal NEUROLOGICAL Neurological: alert, oriented x 3, no gross motor or sensory deficits, other (NO ASTERIXIS) PSYCHOLOGICAL Psychological: mood/affect normal, judgement normal Results Laboratory Result Diagram: 08/10/19 1042 08/10/19 1042 Laboratory Laboratory Tests Test 08/10/19 11:26 08/10/19 10:42 Lactic Acid Level 2.0 mmol/L (0.5-2.0) White Blood Count 15.58 x10e3/uL (4.8-10.8) Red Blood Count 3.32 x10e6/uL (4.3-5.7) Hemoglobin 11.0 g/dL (14.0-18.0) Hematocrit 33.8 % (38.2-49.6) Mean Corpuscular Volume 101.8 fL (81-99) Mean Corpuscular Hemoglobin 33.1 pg (28-32) Mean Corpuscular Hemoglobin Concent 32.5 g/dL (31-35) Red Cell Distribution Width 14.5 % (11.7-14.4) Platelet Count 180 x10e3/uL (140-360) Neutrophils (%) (Auto) 81.7 % (38.7-80.0) Lymphocytes (%) (Auto) 9.6 % (18.0-39.1) Monocytes (%) (Auto) 5.5 % (4.4-11.3) Eosinophils (%) (Auto) 2.0 % (0.0-6.0) Basophils (%) (Auto) 0.4 % (0.0-1.0) Neutrophils # (Auto) 12.7 (2.1-6.9) Lymphocytes # (Auto) 1.5 (1.0-3.2) Monocytes # (Auto) 0.9 (0.2-0.8) Eosinophils # (Auto) 0.3 (0.0-0.4) Basophils # (Auto) 0.1 (0.0-0.1) Absolute Immature Granulocyte (auto 0.12 x10e3/uL (0-0.1) Prothrombin Time 14.1 seconds (11.9-14.5) Prothromb Time International Ratio 1.03 Activated Partial Thromboplast Time 29.2 seconds (23.8-35.5) Sodium Level 137 mmol/L (136-145) Potassium Level 4.9 mmol/L (3.5-5.1) Chloride Level 103 mmol/L (98-107) Carbon Dioxide Level 20 mmol/L (22-29) Anion Gap 18.9 mmol/L (8-16) Blood Urea Nitrogen 89 mg/dL (7-26) Creatinine 4.04 mg/dL (0.72-1.25) Estimat Glomerular Filtration Rate 15 ML/MIN (60-) BUN/Creatinine Ratio 22 (6-25) Glucose Level 110 mg/dL (74-118) Calcium Level 8.2 mg/dL (8.4-10.2) Magnesium Level 2.3 MG/DL (1.3-2.1) Total Bilirubin 15.1 mg/dL (0.2-1.2) Aspartate Amino Transf (AST/SGOT) 172 IU/L (5-34) Alanine Aminotransferase (ALT/SGPT) 90 IU/L (0-55) Alkaline Phosphatase 891 IU/L (40-150) Creatine Kinase 25 IU/L (30-200) Creatine Kinase MB 1.60 ng/mL (0-5.0) Troponin I 0.020 ng/mL (0-0.300) Total Protein 5.7 g/dL (6.5-8.1) Albumin 1.6 g/dL (3.5-5.0) Globulin 4.1 g/dL (2.3-3.5) Albumin/Globulin Ratio 0.4 (0.8-2.0) Lipase 30 U/L (8-78) Lab results reviewed: Yes Imaging Imaging results reviewed: Yes Diagnostics Tests Diagnostic test(s) reviewed: Yes Procedures 12 Lead ECG Interpretation Sunglass Clip Attacher: Interpreted by ED physician Date: August 10, 2019 Time: 10:48 Prior DIRECT MARKETING COORDINATOR tracings: reviewed Rhythm: sinus bradycardia Rate: bradycardia (58) QRS axis: normal ST segments normal: Yes T waves normal: Yes Clinical Impression: normal ECG (EXCEPT LOW VOLTAGE) Critical Care Time Subsequent provider I assumed direction of critical care for this patient from another provider of my specialty. Assessment & Plan Reassessment Reassessment I SPOKE WITH PT REGARDING THAT HE WAS TOLD HE HAD POOR PROGNOSIS LAST WEEK PRIOR TO BEING DISCHARGED, TALKED WITH HIM REGARDING END-OF-LIFE ISSUES AND DNR STATUS - HE UNDERSTANDS AND SAID "i KNOW I'M GOING TO SOON" AND DOES NOT WANT ANY AGGRESSIVE MEASURES, DNR ORDERS PLACED IN COMPUTER. i SPOKE WITH DR JJ WHO AGREES WITH CARE, WILL ADMIT AND HAVE CASE MANAGEMENT INITIATE HOSPICE CARE Assessment & Plan Final Impression: (1) Liver mass (2) Hepatorenal failure (3) Hypotension (4) Liver cirrhosis (5) Bilirubinemia Assessment & Plan ADMIT Depart Disposition: ADMITTED Last Vital Signs Date Time Temp Pulse Resp B/P (MAP) Pulse Ox O2 Delivery O2 Flow Rate FiO2 08/10/19 11:36 56 16 92/57 100 08/10/19 10:03 97.1 Home Meds Discontinued Reported Medications [Denies HM] No Conflict Check 07/27/19 Medications in the ED Pantoprazole Sodium 40 mg ONCE STAT IV Last administered on 08/10/19 11:02; Admin Dose 40 MG; Start 08/10/19 at 10:07; Stop 08/10/19 at 10:19; Status DC Ondansetron HCl 4 mg ONCE STAT IV Last administered on 08/10/19 11:02; Admin Dose 4 MG; Start 08/10/19 at 10:07; Stop 08/10/19 at 10:19; Status DC Cefepime HCl 50 ml @ 100 mls/hr Q12H IV Last administered on 08/10/19 11:02; Admin Dose 100 MLS/HR; Start 08/10/19 at 10:45; Stop 08/17/19 at 10:44 Vancomycin HCl 250 ml @ 167 mls/hr NOW ONCE IV Last administered on 08/10/19 11:02; Admin Dose 167 MLS/HR; Start 08/10/19 at 11:15; Stop 08/10/19 at 12:44 Sodium Chloride 500 ml @ 0 mls/hr Q0M ONCE IV ; Start 08/10/19 at 11:15; Stop 08/10/19 at 11:17; Status DC HANS FINNEY MD August 10, 2019 12:26
[2019-08-10] MEDS ORDERED: MORPHINE SULFATE INJ 4 MG/ML INJ 1ML IV PRN (12:30)
[2019-08-10] MEDS ORDERED: ONDANSETRON HCL INJ 2MG/ML 2ML 2 MG/ML VIAL IV PRN (12:30)
--- OUTSIDE RECORDS SUMMARY | 2019-08-10 12:45 | XMS REPORT ---
Author Author [facility] t Organization [facility] Address [address] [place] [address] Phone Unavailable Care Team Providers Care Plastic Machine Operator Name Role Phone NONSTAFF PCP Unavailable CATRINA JJ Attphys Unavailable CATRINA JJ Admphys Unavailable Advance Directives Directive Decision Effective Date Termination Date Comments Sour ce Yes N/A [facility] Problems Condition Name Condition Details Condition Category Status Onset Date Resolution Date Last Treatment Date Treating Clinician Comments Source Hepatic cirrhosis Problem [facility] Elevated transaminase measurement Problem [facility] Hyperbilirubinemia Problem [facility] Allergies, Adverse Reactions, Alerts This patient has no known allergies or adverse reactions. Social History Social Habit Start Date Stop Date Quantity Comments Source Sex Assigned At 1950 00:00:00 1950 00:00:00 Male [facility] Medications Ordered Medication Name Filled Medication Name Start Date Stop Da te Current Medication? Ordering Clinician Indication Dosage Frequency Signature (SIG) Comments Components Source Denies Hm Denies Hm 2019-08-03 00:00:00 No [facility] Vital Signs Vital Name Observation Time Observation Value Comments Source Body Temperature 2019-08-04 11:16:00 97.1 [degF] [facility] BMI (Body Mass Index) 2019-08-01 00:32:00 32.6 kg/m2 [facility] Weight 2019-07-30 00:08:00 202 [lb_av] [facility] Procedures Procedure Date / Time Performed Performing Clinician [facility] Echo guide for biopsy 2019-08-02 00:00:00 [facility] Magnetic resonance imaging of abdomen without contrast 2019-07-16 7 00:00:00 [facility] US Liver 2019-07-30 00:00:00 [facility] US guided paracentesis 2019-07-28 00:00:00 [facility] Ultrasound, renal 2019-07-28 00:00:00 [facility] CT of abdomen and pelvis without contrast 2019-07-27 00:00:00 [facility] Plan of Care Planned Activity Planned Date Details Comments Source Goal Patient referral [code = 6455795 ] [facility] Goal Patient referral [code = 4837680 ] [facility] Goal Patient referral [code = 7599641 ] [facility] Goal Patient referral [code = 0734719 ] [facility] Instructions Cirrhosis [facility] Results Test Description Test Time Test Comments Results Result Comments Source Serum or plasma sodium measurement (moles/volume) 2019-08-04 05:25:00 Test Item Sodium Level (test code = 2951-2) [facility] ([facility]oles/volume)2019-08-04 05:25:00* Test Item Value Reference Range Interpretation Comments Potassium Level (test code = 2823-3) 3.8 [facility] chloride measurement (moles/volume)2019-08-04 05:25:00* Test Item Value Reference Range Interpretation Comments Chloride Level (test code = 2075-0) 107 [facility] carbon dioxide, total measurement (moles/volume)2019-08-04 05:25:00* Test Item Value Reference Range Interpretation Comments Carbon Dioxide Level (test code = 2028-9) 19 [facility] anion snu3556-66-88 05:25:00* Test Item Value Reference Range Interpretation Comments Anion Gap (test code = 09768-5) 16.8 [facility] urea nitrogen measurement (mass/volume)2019-08-04 05:25:00* Test Item Value Reference Range Interpretation Comments Blood Urea Nitrogen (test code = 3094-0) 64 [facility] creatinine measurement (mass/volume)2019-08-04 05:25:00* Test Item Value Reference Range Interpretation Comments Creatinine (test code = 2160-0) 3.13 [facility] urea nitrogen/creatinine mass yhulw6697-03-19 05:25:00* Test Item Value Reference Range Interpretation Comments BUN/Creatinine Ratio (test code = 3097-3) 20 [facility] HospitalEstimated glomerular filtration rate (GFR) wqbhdvubzvhgy6259-62-19 05:25:00* Test Item Value Reference Range Interpretation Comments Estimat Glomerular Filtration Rate (test code = 205073397) 20 [facility] HospitalGlucose okmsrlfdsno2295-70-16 05:25:00* Test Item Value Reference Range Interpretation Comments Glucose Level (test code = EBX2773) 94 [facility] calcium measurement (mass/volume)2019-08-04 05:25:00* Test Item Value Reference Range Interpretation Comments Calcium Level (test code = 49393-0) 8.5 [facility] total bilirubin measurement (mass/volume)2019-08-04 05:25:00* Test Item Value Reference Range Interpretation Comments Total Bilirubin (test code = 1975-2) 8.6 [facility] HospitalFluoroscopic procedure less than one hour ofghgiip7728-84-52 05:25:00* Test Item Value Reference Range Interpretation Comments Aspartate Amino Transf (AST/SGOT) (test code = Aspartate Amino Transf (AST/SGOT)) 142 [facility] alanine aminotransferase measurement (enzymatic activity/volume)2019-08-04 05:25:00* Test Item Value Reference Range Interpretation Comments Alanine Aminotransferase (ALT/SGPT) (test code = 1742-6) 74 [facility] HospitalAmmonia Pyh-lPkx5757-02-20 05:25:00* Test Item Value Reference Range Interpretation Comments Ammonia (test code = 76051-5) 206 [facility] protein measurement (mass/volume)2019-08-04 05:25:00* Test Item Value Reference Range Interpretation Comments Total Protein (test code = 2885-2) 5.8 [facility] albumin measurement (mass/volume)2019-08-04 05:25:00* Test Item Value Reference Range Interpretation Comments Albumin (test code = 1751-7) 1.6 [facility] HospitalPlasma globulin measurement (mass/volume) 2019-08-04 05:25:00* Test Item Value Reference Range Interpretation Comments Globulin (test code = 23202-0) 4.2 [facility] albumin/globulin mass uvsgg3024-33-65 05:25:00* Test Item Value Reference Range Interpretation Comments Albumin/Globulin Ratio (test code = 1759-0) 0.4 [facility] alkaline phosphatase measurement (enzymatic activity/volume)2019-08-04 05:25:00* Test Item Value Reference Range Interpretation Comments Alkaline Phosphatase (test code = 6768-6) 903 [facility] magnesium measurement (mass/volume)2019-08-03 05:25:00* Test Item Value Reference Range Interpretation Comments Magnesium Level (test code = 30562-3) 2.0 [facility] HospitalBIOPSY OIQJE4514-58-46 15:04:00 [facility] [address] [address] Patient Name: EKATERINA CARRILLO MR #: [id number] : 1950 Age/Sex: 68/M Req #: [id number] Adm Physician: CATRINA JJ MD Ordered by: HIPOLITO XIAO MD Report #: [id number] Location: MED/SURG3 Room/Bed: [facility] Procedure: [id number] IR/B IOPSY LIVER Exam Date: 08/02/19 Exam Time: 1349 REPORT STATUS: Signed Ultrasound guided liver mass biopsy, 08/02/2019. Pre-procedure diagnosis: Left hepat ic mass. Post-procedure diagnosis: Same Comparison: MRI abdomen 020, ultrasound 07/30/2019. Radiologist: Robert Gonzalez MD Hotel Custodian: Aletha hayward Sedation: Moderate sedation was administered. [...] Signed By: ROBERT GONZALEZ MD on 08/02/19 9580 Transcribed By: KT on 08/02/19 0058 COPY TO: HIPOLITO XIAO MD MRI ABDOMEN WO 2019-08-01 22:37:[address] [address] Patient Name: EKATERINA CARRILLO MR #: [id number] : 1950 [facility]: 68[id number] Req #: [id number] Adm Physician: CATRINA JJ MD Ordered by: MAYRA BARRY MD Report #: [id number] Location: MED/SURG3 Room/Bed: [facility] Procedure: [id number] MRI/MRI ABDOMEN WO Exam Date: Exam Time: [...] Test Item Value Reference Range Interpretation Comments Hrcpd-1-Iuefzqthymh (test code = 1825-9) 217 [facility] HospitalUS SSYGZ7004-01-07 16:13:00 [address] [address] Patient Name: EKATERINA CARRILLO MR #: [id number] : 1950 Age/Sex: 68/M Req #: [id number] Adm Physician: CATRINA JJ MD Ordered by: CATRINA JJ MD Report #: [id number] Location: [facility] Room/Bed: [facility] Procedure: [id number] US/US LI AURE Exam Date: 07/30/19 Exam [...] Alkaline Phosphatase (test code = 6768-6) 716 [facility] intestinal alkaline phosphatase/total alkaline phosphatase ajjhq5807-28-49 05:15:00* Test Item Value Reference Range Interpretation Comments Alkaline Phosphatase Iso-Intestine (test code = 02826-4) 4 [facility] bone alkaline phosphatase/alkaline phosphatase.nzvkv4211-91-56 05:15:00* Test Item Value Reference Range Interpretation Comments Alkaline Phosphatase Iso-Bone (test code = 42024-5) 43 [facility] liver alkaline phosphatase/total alkaline phosphatase wfqce3685-10-00 05:15:00* Test Item Value Reference Range Interpretation Comments Alkaline Phosphatase Iso-Liver (test code = 62482-4) 53 [facility] HospitalPhosphorus dilkdvrwxgv6494-97-80 05:05:00 * Test Item Value Reference Range Interpretation Comments Phosphorus Level (test code = JIS7095) 4.8 [facility] HospitalUrine protein measurement (mass/volume) 2019-07-28 17:00:00* Test Item Value Reference Range Interpretation Comments Urine Random Total Protein (test code = 2888-6) < 6.8 [facility] HospitalUrine collection time mvzegkgd2243-23-32 17:00:00* Test Item Value Reference Range Interpretation Comments Urine Collection Time (test code = RIE1025) 24 [facility] HospitalTimed urine specimen nxmlqj1041-33-20 17:00:00* Test Item Value Reference Range Interpretation Comments Urine Total Volume (test code = 04061-9) 3000 [facility] HospitalUrine creatinine measurement (mass/volume)2019-07-28 17:00:00* Test Item Value Reference Range Interpretation Comments Urine Creatinine (test code = 2161-8) 22.73 [facility]24 hour urine creatinine measurement (mass/time)2019-07-28 17:00:00* Test Item Value Reference Range Interpretation Comments Urine Creatinine 24 Hour (test code = 2162-6) 682 [facility] HospitalRenal creatinine clearance measurement 2019-07-28 17:00:00* Test Item Value Reference Range Interpretation Comments Creatinine Clearance (test code = 24432-1) 13 [facility]24 hour urine protein measurement (mass/time)2019-07-28 17:00:00* Test Item Value Reference Range Interpretation Comments Urine Total Protein 24 Hour (test code = 2889-4) 203.77157 [facility] HospitalUS RENAL RETROPERITONEAL YYUV0190-09-13 16:41:00 [facility] [address] [address] Patient Name: EKATERINA CARRILLO MR #: [id number] : 1950 Age/Sex: 68/M Req #: [id number] Adm Physician: CATRINA JJ MD Ordered by: ROZ LENTZ MD Report #: [id number] Location: MED/SURG3 Room/Bed: 284-1 Procedure: US/US RENAL RETROPERITONEAL COMP Exam Date: 07/28/19 Exam Time: 155 REPORT STATUS: Signed EXAM: Renal Ultrasound INDICATION: kidmey failure [id number] COMPARISON: None TECHNIQUE: Transverse and [...] MD Fluoroscopic procedure less than one hour llzdsebp1530-76-60 15:35:00* Test Item Value Reference Range Interpretation Comments Venous Blood pH (test code = Venous Blood pH) 7.302 [facility] HospitalFluoroscopic procedure less than one hour qtpbjdsh8414-49-30 15:35:00* Test Item Value Reference Range Interpretation Comments Venous Blood Partial Pressure CO2 (test code = Venous Blood Partial Pressure CO2) 31.7 [facility] HospitalFluoroscopic procedure less than one hour qtedabhe3936-57-21 15:35:00* Test Item Value Reference Range Interpretation Comments Venous Blood HCO3 (test code = Venous Blood HCO3) 15.7 [facility] HospitalFluoroscopic procedure less than one hour jkntawdw9902-09-33 15:35:00* Test Item Value Reference Range Interpretation Comments Venous Blood Total Carbon Dioxide (test code = Venous Blood Total Carbon Dioxide) 17 [facility] HospitalFluoroscopic procedure less than one hour jgayuiqg6349-44-99 15:35:00* Test Item Value Reference Range Interpretation Comments Venous Blood Base Excess (test code = Venous Blood Base Excess) -11 [facility] HospitalUS GUIDED XXOUQYVGYNWM8025-68-26 12:49:00 [facility] [address] [place] [address] Patient Name: EKATERINA CARRILLO MR #: [id number] : [birth year] Age/Sex: 68/M Req #: [id number] Adm Physician: CATRINA JJ MD Ordered by: MAYRA BARRY MD Report #: [id number] Location: [facility] Room/Bed: [facility] Procedure: [id number] US/US G UIDED PARACENTESIS Exam Date: 07/28/19 [...] BARRY MD Specimen source identification of body yefnu8200-54-49 11:25:00* Test Item Value Reference Range Interpretation Comments Body Fluid Type (test code = 50485-5) [facility]AL [facility] fluid 2019-07-28 11:25:00* Test Item Value Reference Range Interpretation Comments Body Fluid Color (test code = 6824-7) GREEN [facility] HospitalDetermination of appearance of body fluid 2019-07-28 11:25:00* Test Item Value Reference Range Interpretation Comments Body Fluid Appearance (test code = 9335-1) CLOUDY [facility] body fluid leukocytes count (number/volume)2019-07-28 11:25:00* Test Item Value Reference Range Interpretation Comments Body Fluid WBC (test code = 6743-9) 67 [facility] body fluid erythrocytes count (number/volume)2019-07-28 11:25:00* Test Item Value Reference Range Interpretation Comments Body Fluid RBC (test code = 6741-3) 99 [facility] body fluid neutrophils/100 qgpfqvufdh4094-68-99 11:25:00* Test Item Value Reference Range Interpretation Comments Body Fluid Neutrophils (test code = 53916-1) 13 [facility] HospitalBody fluid lymphocyte ynpoi7557-32-07 11:25:00* Test Item Value Reference Range Interpretation Comments Body Fluid Lymphocytes (test code = 97531322) 44 [facility] HospitalBody fluid monocyte mzxnz1461-21-26 11:25:00* Test Item Value Reference Range Interpretation Comments Body Fluid Monocytes (test code = 27696-2) 10 [facility] HospitalBody fluid other cells manual count 2019-07-28 11:25:00* Test Item Value Reference Range Interpretation Comments Body Fluid Other Cells (test code = 582736527) 33 [facility] HospitalTotal cell mnaik7728-82-30 11:25:00* Test Item Value Reference Range Interpretation Comments Body Fluid Total Cells Counted (test code = 94553-4) 100 [facility] HospitalCT ABDOMEN/PELVIS BD7234-32-29 10:35:00 [facility] [address] [place] [address] Patient Name: EKATERINA CARRILLO MR #: [id number] : 1950 Age/Sex: 68/M Req #: [id number] Adm Physician: CATRINA JJ MD Ordered by: TERRANCE AGUSTIN NP Report #: [id number] Location: MED/SURG3 Room/Bed: 284-1 Procedure: [id number] CT/CT ABDOMEN/PELVIS WO Exam Date: 07/27/19 Exam [...] Comments Ceruloplasmin (test code = 2064-4) 39.1 [facility] hepatitis A virus IgM antibody detection by gwayyahpupd4448-60-76 10:06:00* Test Item Value Reference Range Interpretation Comments Hepatitis A IgM Antibody (test code = 84629-6) Negative [facility] hepatitis B virus surface antigen detection by mnxkoznyjhb8890-69-91 10:06:00* Test Item Value Reference Range Interpretation Comments Hepatitis B Surface Antigen (test code = 5196-1) Negative [facility] plasma hepatitis B virus core IgM antibody detection by kjouujqpxlc4624-01-74 10:06:00* Test Item Value Reference Range Interpretation Comments Hepatitis B Core IgM Antibody (test code = 65326-0) Negative [facility] hepatitis C virus antibody dosimfojs5548-57-82 10:06:00* Test Item Value Reference Range Interpretation Comments Hepatitis C Antibody (test code = 41451-5) 0.1 [facility] mitochondria M2 IgG antibody assay (units/volume)2019-07-28 10:06:00* Test Item Value Reference Range Interpretation Comments Anti-Mitochondrial Antibody (test code = 37996-6) <20.0 [facility] HospitalCHEST SINGLE (PORTABLE)2019-07-28 09:48:00 [facility] [address] [place] [address] Patient Name: EKATERINA CARRILLO MR #: [id number] : 1950 Age/Sex: 68/M Req #: [id number] Adm Physician: CATRINA JJ MD Ordered by: TERRANCE AGUSTIN NP Report #: [id number] Location: MED/SURG3 Room/Bed: [facility] Procedure: [id number] DX/MORALES ST SINGLE (PORTABLE) Exam Date: 07/27/19 [...] JUDD MD 0950 COPY TO: ROBERT AGUSTIN [employer] Blood leukocytes automated count (number/volume)2019-07-28 05:10:00* Test Item Value Reference Range Interpretation Comments White Blood Count (test code = 6690-2) 8.76 [facility] HospitalBlood erythrocytes automated count (number/volume)2019-07-28 05:10:00* Test Item Value Reference Range Interpretation Comments Red Blood Count (test code = 789-8) 3.21 [facility] HospitalBlood hemoglobin measurement (moles/volume)2019-07-28 05:10:00* Test Item Value Reference Range Interpretation Comments Hemoglobin (test code = 01049-7) 10.7 [facility] HospitalAutomated blood hematocrit (volume fraction)2019-07-28 05:10:00* Test Item Value Reference Range Interpretation Comments Hematocrit (test code = 4544-3) 33.5 [facility] HospitalAutomated erythrocyte mean corpuscular auemvm2798-71-46 05:10:00* Test Item Value Reference Range Interpretation Comments Mean Corpuscular Volume (test code = 787-2) 104.4 [facility] HospitalAutomated erythrocyte mean corpuscular hemoglobin (mass per erythrocyte)2019-07-28 05:10:00* Test Item Value Reference Range Interpretation Comments Mean Corpuscular Hemoglobin (test code = 785-6) 33.3 [facility] HospitalAutonslow memorial hospitaled erythrocyte mean corpuscular hemoglobin concentration measurement (mass/volume)2019-07-28 05:10:00* Test Item Value Reference Range Interpretation Comments Mean Corpuscular Hemoglobin Concent (test code = 786-4) 31.9 [facility] HospitalRDW CgiDv-Qse2075-91-13 05:10:00* Test Item Value Reference Range Interpretation Comments Red Cell Distribution Width (test code = 07441-4) 15.6 [facility] HospitalAutonslow memorial hospitaled blood platelet count (count/volume)2019-07-28 05:10:00* Test Item Value Reference Range Interpretation Comments Platelet Count (test code = 777-3) 215 [facility] HospitalAutonslow memorial hospitaled blood segmented neutrophil count as percentage of total xxoqeaxihl6911-86-48 05:10:00* Test Item Value Reference Range Interpretation Comments Neutrophils (%) (Auto) (test code = 04776-5) 73.3 [facility] HospitalAutomated blood lymphocyte count as percentage ot total zzvewxcity4395-27-66 05:10:00* Test Item Value Reference Range Interpretation Comments Lymphocytes (%) (Auto) (test code = 736-9) 13.5 [facility] monocyte count as percentage of total fhcgtgvpuz7038-99-27 05:10:00* Test Item Value Reference Range Interpretation Comments Monocytes (%) (Auto) (test code = 5905-5) 7.6 [facility] HospitalAutomated blood eosinophil count as percentage of total ajrzbglzmo7895-34-10 05:10:00* Test Item Value Reference Range Interpretation Comments Eosinophils (%) (Auto) (test code = 713-8) 3.9 [facility] HospitalAutomated blood basophil count as percentage of total ilerekxsvm3962-88-27 05:10:00* Test Item Value Reference Range Interpretation Comments Basophils (%) (Auto) (test code = 706-2) 0.8 [facility] HospitalFluoroscopic procedure less than one hour nrjlyjtt2244-83-57 05:10:00* Test Item Value Reference Range Interpretation Comments IM GRANULOCYTES % (test code = IM GRANULOCYTES %) 0.9 [facility] HospitalAutomated blood neutrophil count 2019-07-28 05:10:00* Test Item Value Reference Range Interpretation Comments Neutrophils # (Auto) (test code = 751-8) 6.4 [facility] HospitalBlood lymphocytes count (number/volume) 2019-07-28 05:10:00* Test Item Value Reference Range Interpretation Comments Lymphocytes # (Auto) (test code = 41359-4) 1.2 [facility] monocytes automated count (number/volume)2019-07-28 05:10:00* Test Item Value Reference Range Interpretation Comments Monocytes # (Auto) (test code = 742-7) 0.7 [facility] HospitalAutomated blood eosinophil count 2019-07-28 05:10:00* Test Item Value Reference Range Interpretation Comments Eosinophils # (Auto) (test code = 711-2) 0.3 [facility] HospitalAutomated blood basophil count (count/volume)2019-07-28 05:10:00* Test Item Value Reference Range Interpretation Comments Basophils # (Auto) (test code = 704-7) 0.1 [facility] HospitalFluoroscopic procedure less than one hour jzafddfy0127-51-42 05:10:00* Test Item Value Reference Range Interpretation Comments Absolute Immature Granulocyte (auto (serge t code = Absolute Immature Granulocyte (auto) 0.08 [facility] HospitalAutomated reticulocyte count as percentage of total yttyeukejiwq9529-22-98 05:10:00* Test Item Value Reference Range Interpretation Comments Percent Reticulocyte Count (test code = 65644-9) 1.6 [facility] HospitalProthrombin time (PT) in platelet poor plasma by coagulation ifrbl4640-98-15 05:10:00* Test Item Value Reference Range Interpretation Comments Prothrombin Time (test code = 5902-2) 15.0 [facility] HospitalINR in Platelet poor plasma by Coagulation iovam2167-97-61 05:10:00* Test Item Value Reference Range Interpretation Comments Prothromb Time International Ratio (test code = 6301-6) 1.11 [facility] iron measurement (mass/volume)2019-07-28 05:10:00* Test Item Value Reference Range Interpretation Comments Iron Level (test code = 2498-4) 44 [facility] or plasma iron binding capacity measurement (mass/volume)2019-07-28 05:10:00* Test Item Value Reference Range Interpretation Comments Total Iron Binding Capacity (test code = 2500-7) 123 [facility] or plasma iron saturation measurement (mass fraction)2019-07-28 05:10:00* Test Item Value Reference Range Interpretation Comments Percent Iron Saturation (test code = 2502-3) 36 [facility] or plasma transferrin measurement (mass/volume)2019-07-28 05:10:00* Test Item Value Reference Range Interpretation Comments Transferrin (test code = 3034-6) 88 [facility] or plasma ferritin measurement (mass/volume)2019-07-28 05:10:00* Test Item Value Reference Range Interpretation Comments Ferritin (test code = 2276-4) 340.34 [facility] HospitalBlood cobalamin (vitamin B12) measurement (mass/volume)2019-07-28 05:10:00* Test Item Value Reference Range Interpretation Comments Vitamin B12 Level (test code = 86241-8) > 2000 [facility] or plasma klslx-2-pbukrhapbsw.tumor marker measurement (mass/volume)2019-07-28 05:10:00* Test Item Value Reference Range Interpretation Comments Alpha Fetoprotein (test code = 05278-5) 2.1 [facility] or plasma folate measurement (mass/volume)2019-07-28 05:10:00* Test Item Value Reference Range Interpretation Comments Folate (test code = 2284-8) 10.9 [facility] HospitalFluoroscopic procedure less than one hour pujxtnuj2878-51-22 20:16:00* Test Item Value Reference Range Interpretation Comments Coronavirus (PCR) (test code = Coronavirus (PCR)) NOT DETECTED [facility] HospitalUrine color phwaunaovjkmu6960-60-61 14:06:00* Test Item Value Reference Range Interpretation Comments Urine Color (test code = 5778-6) KAYODE [facility] HospitalUrine qbhskvp5888-05-08 14:06:00* Test Item Value Reference Range Interpretation Comments Urine Clarity (test code = 17625-7) CL[facility]DY [facility] Centerpecific gravity of Urine by Test strip 2019-07-27 14:06:00* Test Item Value Reference Range Interpretation Comments Urine Specific Alpine (test code = 5811-5) 1.025 [facility] HospitalUrine pH measurement by automated test rhgvp7013-02-70 14:06:00* Test Item Value Reference Range Interpretation Comments Urine pH (test code = 47463-6) 5.5 [facility] by [id number] 14:06:00* Test Item Value Reference Range Interpretation Comments Urine Leukocyte Esterase (test code = 5799-2) TRACE [facility] nitrite [id number] 14:06:00* Test Item Value Reference Range Interpretation Comments Urine Nitrite (test code = 23827-3) NEGATIVE [facility] protein measurement by test strip (mass/volume)2019-07-27 14:06:00* Test Item Value Reference Range Interpretation Comments Urine Protein (test code = 5804-0) 2+ [facility] glucose [id number] 14:06:00* Test Item Value Reference Range Interpretation Comments Urine Glucose (UA) (test code = 2349-9) NEGATIVE [facility] ketones detection by automated test [id number] 14:06:00* Test Item Value Reference Range Interpretation Comments Urine Ketones (test code = 72272-4) TRACE [facility] urobilinogen measurement by test strip (mass/volume)2019-07-27 14:06:00* Test Item Value Reference Range Interpretation Comments Urine Urobilinogen (test code = 18120-6) 2 [facility] total bilirubin measurement (mass/volume)2019-07-27 14:06:00* Test Item Value Reference Range Interpretation Comments Urine Bilirubin (test code = 1978-6) LARGE [facility] erythrocytes [id number] 14:06:00* Test Item Value Reference Range Interpretation Comments Urine Blood (test code = 29885-2) NEGATIVE [facility]Automated urine sediment leukocyte count by microscopy (number/high power field)2019-07-27 14:06:00* Test Item Value Reference Range Interpretation Comments Urine WBC (test code = 5821-4) 6-10 [facility]Erythrocytes detection in urine sediment by light [id number] 14:06:00* Test Item Value Reference Range Interpretation Comments Urine RBC (test code = 82404-0) NONE [facility] HospitalBacteria detection in urine sediment by light [id number] 14:06:00* Test Item Value Reference Range Interpretation Comments Urine Bacteria (test code = 30368-1) MANY [facility] HospitalEpithelial cells detection in urine sediment by light [id number] 14:06:00* Test Item Value Reference Range Interpretation Comments Urine Epithelial Cells (test code = 74115-5) RARE [facility] HospitalAmorphous sediment detection in urine sediment by light [id number] 14:06:00* Test Item Value Reference Range Interpretation Comments Urine Amorphous Sediment (test code = 8246-1) MODERATE [facility] HospitalActivated partial thromboplastin time (aPTT) in platelet poor plasma by coagulation [id number] 13:55:00* Test Item Value Reference Range Interpretation Comments Activated Partial Thromboplast Time (test code = 07079-1) 23.0 [facility] HospitalFluoroscopic procedure less than one hour [id number] 13:55:00* Test Item Value Reference Range Interpretation Comments Lactic Acid Level (test code = Lactic Acid Level) 1.8 [facility] triglyceride measurement (mass/volume)2019-07-27 13:55:00* Test Item Value Reference Range Interpretation Comments Triglycerides Level (test code = 2571-8) 264 [facility] cholesterol measurement (mass/volume)2019-07-27 13:55:00* Test Item Value Reference Range Interpretation Comments Cholesterol Level (test code = 2093-3) 211 [facility] cholesterol in LDL measurement (mass/volume)2019-07-27 13:55:00* Test Item Value Reference Range Interpretation Comments LDL Cholesterol (test code = 2089-1) 151 [facility] cholesterol in HDL measurement (mass/volume)2019-07-27 13:55:00* Test Item Value Reference Range Interpretation Comments HDL Cholesterol (test code = 2085-9) 7 [facility] total cholesterol/cholesterol in HDL mass [id number] 13:55:00* Test Item Value Reference Range Interpretation Comments Cholesterol/HDL Ratio (test code = 9830-1) 30.1 [facility]BNP [id number] 13:55:00* Test Item Value Reference Range Interpretation Comments B-Type Natriuretic Peptide (test code = 54511-8) 172.5 [facility] creatine kinase measurement (enzymatic activity/volume)2019-07-27 13:55:00* Test Item Value Reference Range Interpretation Comments Creatine Kinase (test code = 2157-6) 36 [facility] creatine kinase MB measurement (mass/volume)2019-07-27 13:55:00* Test Item Value Reference Range Interpretation Comments Creatine Kinase MB (test code = 11971-0) 2.70 [facility] HospitalTroponin I measurement by highly sensitive enzyme uraiqoxjhxg6897-48-53 13:55:00* Test Item Value Reference Range Interpretation Comments Troponin I (test code = 61766-4) 0.011 [facility] lipase measurement (enzymatic activity/volume)2019-07-27 13:55:00* Test Item Value Reference Range Interpretation Comments Lipase (test code = 3040-3) 53 [facility] HospitalBlood [id number] 13:55:00* Test Item Value Reference Range Interpretation Comments Blood Culture (test code = 84838977) NO GROWTH AFTER 5 DAYS, FINAL REPORT [facility]
--- NOTE | 2019-08-10 12:58 | Diagnostic Imaging Report ---
X-ray chest AP portable History: Shortness of breath Comparison: None Findings: Central airways unremarkable. Heart size normal. Right pleural effusion with a possible subpulmonic effusion. Underlying volume loss of the right lower lobe. Pneumonia is not ruled out. Fluid in the minor fissure. The remainder of the right lung unremarkable. Left lung unremarkable. No pneumothorax. Visualized skeletal structures unremarkable for degenerative disease. Upper abdomen unremarkable. Impression: Right pleural effusion with a possible right subpulmonic effusion and right lower lobe atelectasis. Right lower lobe Pneumonia is not ruled out. Signed by: Gabriele Anderson MD on 08/10/2019 12:55 PM
--- NOTE | 2019-08-10 13:23 | Diagnostic Imaging Report ---
CT of the abdomen and pelvis. Comparison: MRI abdomen without contrast 08/01/2019. Ultrasound liver 07/30/2019. Clinical History: Pain and jaundice Technique: Helical CT scan of the abdomen and pelvis was performed. Intravenous contrast administration was not utilized. Oral contrast administration was not utilized. Coronal and sagittal reconstructions were generated from the raw data. Multiple images were submitted for interpretation. This exam was performed according to our departmental dose-optimization program which includes automated exposure control, adjustment of the mA and/or kV according to patient size Discussion: Inferior chest: Unremarkable. Liver: Hepatomegaly. The liver measures approximately 20 cm in its longest dimension. The liver contour is nodular. This is consistent with cirrhosis of the liver. There is a hypodense heterogeneous mass occupying segments 1234 of the liver with additional low-density areas in the right lobe of the liver. This is also associated with suggestion of expansion of the portal vein and its branches. Portal vein invasion is not entirely ruled out. There is no intrahepatic biliary dilatation. There is no extrahepatic biliary dilatation. On this study the gallbladder appears unremarkable. There is presence of peritoneal ascites. There is presence of multiple nodular densities in the linda hepatis along the portal vein celiac axis and in the peripancreatic region. These are large lymph nodes and metastatic lymphadenopathy is not ruled out. Reactive lymphadenopathy from cirrhosis is another possibility. Spleen: The spleen is borderline in size and measures approximately 14 cm in the coronal plane its largest dimension. Pancreas: Unremarkable Biliary tree and gallbladder: Unremarkable Adrenal glands: Unremarkable Kidneys and ureters: Atrophic right kidney that measures 7 cm in the craniocaudad maximal dimension. The right kidney measures approximately 10.5 cm. There is no obvious renal mass, hydronephrosis or radiodense calculi. Ureters are unremarkable to the extent seen. Urinary bladder is unremarkable. Vasculature: Patchy atherosclerotic calcification of aorta and its major branches. Lymph nodes: As described above. Bowel: Unremarkable. Pelvis: Prostate unremarkable. Seminal vesicles unremarkable. Pelvic wall unremarkable. Peritoneum: Nodularity of the greater omentum is once again noted. Perineal compartments: unremarkable. Fluid: Ascites as described above moderate in amount. Bones: Degenerative changes. No suggestion of metastatic lesions involving the bone. Body wall: Unremarkable Right hydrocele. Impression: The study has limited sensitivity because of the lack of oral and intravenous contrast. The findings are most consistent with the previously raised suspicion of hepatocellular carcinoma in the setting of hepatic cirrhosis on multiple recent imaging studies including ultrasound of the liver and MRI of the abdomen. The lymphadenopathy in the perihepatic location is suspicious for metastatic lymph nodes. There is possibility of tumor extension into the portal vein. Omental nodularity is also suspicious for possible peritoneal implants. Correlation with the liver biopsy performed on 08/02/2019 is recommended. Atrophic left kidney. Signed by: Gabriele Anderson MD on 08/10/2019 1:19 PM
[2019-08-10 13:45] VITALS: BP 107/65
[2019-08-10] MEDS ORDERED: ACETAMINOPHEN 325 MG TAB PO PRN (13:45)
--- NOTE | 2019-08-10 13:45 | NUR ---
PATIENT RECEIVED FROM ER PER STRETCHER. ALERT AND VERBALLY RESPONSIVE. SKIN WARM AND DRY TO TOUCH, JAUNDICE ALL OVER THE BODY. RESPIRATION EVEN AND UNLABORED, ABDOMEN SOFT, LARGE, ROUND, WITH POSITIVE BS. YELLOW SOCKS APPLIED AND URINAL PROVIDED. BED IN LOWER POSITION AND LOCKED. CALL LIGHT AT REACH, BED ALARM ACTIVATED.
[2019-08-10] MEDS ORDERED: LACTULOSE SYRUP 20 GM/30 ML UDC PO PRN (14:15)
--- NOTE | 2019-08-10 15:00 | History and Physical ---
HISTORY OF PRESENT ILLNESS: A 68 years old male with past medical history positive for recently diagnosed cirrhosis of the liver with portal hypertension, hepatoma, and chronic renal failure, came to the hospital complaining of vomiting. The patient is considered hospice today. REVIEW OF SYSTEMS: CARDIOVASCULAR: No chest pain or palpitation. RESPIRATORY: No shortness of breath. No cough. GASTROINTESTINAL: No nausea or vomiting. Complaining of right upper quadrant abdominal pain. No diarrhea. GENITOURINARY: No frequency or dysuria. ALLERGIES: NOT ALLERGIC TO ANY MEDICATION. PAST MEDICAL HISTORY: Positive for cirrhosis of the liver, hepatorenal syndrome, hepatoma, and anemia of chronic disease. SOCIAL HISTORY: He used to drink. He used to smoke. PHYSICAL EXAMINATION: HEART: Regular rhythm. Normal S1, S2 sound. LUNGS: Clear bilaterally. ABDOMEN: Soft. Slight right upper quadrant tenderness. No distention. No visceromegaly. EXTREMITIES: No edema. VITAL SIGNS: Blood pressure 129/65, temperature 97.1, heart rate 64 per minute, respiratory rate 18 per minute, and oxygen saturation 98%. LABORATORY DATA: On the blood work, CBC with white count of 15.58, hemoglobin 11.0, hematocrit 33.8, and platelet count 180,000. On the BMP; sodium 137, potassium 4.9, chloride 103, CO2 of 20, BUN 89, creatinine 4.04, glucose 110, lactic acid 2.0, calcium is 8.2, magnesium 2.3, total bilirubin 15.1, AST is 172, ALT 19, and alkaline phosphatase 81. Creatine kinase 25, troponin 0.020, and total protein 5.7. Albumin 1.6, globulin 4.1, lipase 30. Coronavirus test is pending. CT of the abdomen was done, which showed hepatocellular carcinoma with cirrhosis, lymphadenopathy in the perihepatic location, suspicion for metastatic lymph node. There is a possibility of tumor extension to the portal vein. Omental nodularity is also suspicion for possible peritoneal implants. Liver biopsy performed on August 01, . On the chest x-ray which was done in the ER also showed right pleural effusion with possible right effusion with right lower lobe atelectasis, right lower lobe pneumonia not ruled out. FINAL IMPRESSION: 1. Vomiting. 2. Abdominal pain. 3. Cirrhosis of the liver. 4. Portal hypertension. 5. Chronic renal failure stage 4. 6. Hepatoma. 7. Anemia of chronic disease. PLAN OF TREATMENT: The patient will get a hospice evaluation since that what he wants, continue in the meantime cefepime 1 g IV twice a day. Continue with Tylenol 325 mg q.4 hours as needed for pain or fever, furosemide 20 mg IV daily, morphine 4 mg IV q.4 hours as needed for severe pain, Zofran 4 mg IV q.4 hours as needed for nausea and vomiting, Protonix 40 mg IV twice a day, Aldactone 25 mg daily, and Zofran 4 mg IV one time. We are going to give him also lactulose 20 g twice a day, Xifaxan 550 mg twice a day. Diet is going to be a low-salt diet. I am going to add Zithromax 500 mg IV daily due to the possible pneumonia. Prognosis is very poor. Hospice is going to be consulted. The patient is aware of the consider hospice. Also, Dr. Jose Munoz has been consulted from Gastroenterology point of view. . Dr. Laguerre Hemato-Oncology also has been consulted and Dr. Lawrence for Renal Service has been consulted also. We are going to repeat a CMP tomorrow. MD DARREL Najera/KELLY /[id number]
[2019-08-10 15:53] VITALS: BP 95/53
[2019-08-10] MEDS: AZITHROMYCIN 250MG/NS 100 ML 100 ML IV SCH (16:00)
--- NOTE | 2019-08-10 16:37 | NUR ---
SPOKE WITH PT ABOUT HOSPICE ORDER, SIGNED CHOICE FOR [facility] FILED IN CHART AND FAXED CLINICALS TO COMPANY.
[2019-08-10] MEDS ORDERED: RIFAXIMIN 200 MG TAB PO SCH (17:00)
[2019-08-10] MEDS: RIFAXIMIN 550 MG TABLET PO SCH (17:15)
--- NOTE | 2019-08-10 19:30 | NUR ---
Patient visited in room during nursing rounds. Patient alert and oriented x3. Ambulatory in room with assistance and has generalized weakness at this time. No distress or discomfort noted. Skin is jaundiced all over body. Abdomen soft with bowel sound. Pt on scheduled IV antibiotic treatment. Call ferraro within reach. Will monitor pt closely.
[2019-08-10 20:00] VITALS: BP 95/56
[2019-08-10 21:00] VITALS: BP 95/56
[2019-08-10] MEDS ORDERED: FUROSEMIDE INJ 10 MG/ML 4 ML VIAL IV SCH (21:00)
[2019-08-11] VITALS (7 sets, daily range): BP systolic 96–108; BP diastolic 53–63
--- NOTE | 2019-08-11 01:00 | NUR ---
Dr. Jose Munoz came and visited pt in room. MD aware of pt condition. Pt plan to order pt to have Paracentesis today.
--- NOTE | 2019-08-11 02:18 | NUR ---
Pt agreed and signed consent form for Paracentesis scheduled on 08/11/19.
[2019-08-11 02:20] LABS: CLARITY,URINE CLOUDY (CLEAR); COLOR,URINE AMBER (YELLOW); LEUKOCYTE ESTERASE ,URINE TRACE (NEGATIVE); NITRITE,URINE NEGATIVE (NEGATIVE)
[2019-08-11 02:21] LABS: BILIRUBIN,URINE 2+ (NEGATIVE); KETONES,URINE TRACE (NEGATIVE); PROTEIN,URINE DIPSTICK TRACE (NEGATIVE); URINE UROBILINOGEN 1 mg/dL (0.2 - 1)
[2019-08-11 02:38] LABS: BACTERIA,URINE MANY /HPF; EPITHELIAL CELLS,URINE FEW /LPF; TRANSITIONAL EPI CELLS,URINE FEW; WBC,URINE (MAN) 21-50 /HPF (0-5)
[2019-08-11 02:42] LABS: OTHER CRYSTALS,URINE PRESENT
[2019-08-11 06:11] LABS: BASOPHILS % 0.4 % (0.0-1.0); EOSINOPHILS # (AUTO) 0.4 (0.0-0.4); EOSINOPHILS % 4.3 % (0.0-6.0); HEMATOCRIT 31.4 % (38.2-49.6); LYMPHOCYTES # (AUTO) 1.6 (1.0-3.2); LYMPHOCYTES % 16.6 % (18.0-39.1); MEAN CORPUSCULAR HEMOGLOBIN 33.7 pg (28-32); MEAN CORPUSCULAR HGB CONC 31.8 g/dL (31-35); MEAN CORPUSCULAR VOLUME 105.7 fL (81-99); MONOCYTES # (AUTO) 0.6 (0.2-0.8); MONOCYTES % 6.3 % (4.4-11.3); NEUTROPHILS # (AUTO) 6.9 (2.1-6.9); NEUTROPHILS % 71.4 % (38.7-80.0); PLATELET COUNT 129 x10e3/uL (140-360); RED BLOOD COUNT 2.97 x10e6/uL (4.3-5.7); RED CELL DISTRIBUTION WIDTH 14.2 % (11.7-14.4)
[2019-08-11 06:37] LABS: ALBUMIN 1.5 g/dL (3.5-5.0); ALBUMIN/GLOBULIN RATIO 0.4 (0.8-2.0); ANION GAP 15.7 mmol/L (8-16); CALCIUM 8.1 mg/dL (8.4-10.2); CREATININE, SERUM 4.44 mg/dL (0.72-1.25); POTASSIUM 4.7 mmol/L (3.5-5.1)
[2019-08-11 06:53] LABS: MAGNESIUM 2.2 MG/DL (1.3-2.1)
[2019-08-11 06:59] LABS: PLATELET ESTIMATE SLIGHTLY DECREASED; PLATELET MORPHOLOGY COMMENT NORMAL; RBC MORPHOLOGY COMMENT NORMAL
[2019-08-11] MEDS: MIDODRINE 2.5 MG TAB PO SCH ×3 (08:48→16:32)
[2019-08-11] MEDS: RIFAXIMIN 550 MG TABLET PO SCH ×2 (08:48→16:32)
[2019-08-11] MEDS ORDERED: FUROSEMIDE INJ 10 MG/ML 2 ML VIAL IV SCH (09:00)
[2019-08-11] MEDS ORDERED: SPIRONOLACTONE 25 MG TAB PO SCH (09:00)
[2019-08-11] MEDS: CEFEPIME 1GM/NS 0.9% 50 ML 50 ML IV SCH (10:00)
--- NOTE | 2019-08-11 10:35 | NUR ---
HOSPICE REP HERE TO SEE PATIENT AND COMPLETE PAPERWORK. PT WILL DISCHARGE HOME TO DAY.
--- NOTE | 2019-08-11 11:40 | Progress Note ---
DATE: Internal Medicine Progress Note SUBJECTIVE: A 68-year-old male, who came with abdominal pain and vomiting. He has had a cellular hepatoma, very poor prognosis. The patient has been seen already by Hematology, Dr. Laguerre, whose opinion of the prognosis is extremely poor. The patient should be a hospice candidate. The patient finally with hospice, he is going home with hospice today. PHYSICAL EXAMINATION: HEART: Showed regular rhythm. Normal S1, S2 sound. LUNGS: Clear bilaterally. ABDOMEN: Soft, nontender. No distention. FINAL IMPRESSION: 1. Hepatoma. 2. Cirrhosis. 3. Portal hypertension. 4. Chronic renal failure stage 4. 5. Anemia of chronic disease. 6. Possible pneumonia. TREATMENT AND PLAN: Continue Zithromax 250 mg IV once a day, cefepime 1 g IV twice a day. Continue Tylenol 325 mg q.4 hours as needed for pain or fever, furosemide 20 mg IV daily, lactulose 20 g twice a day as needed for constipation, midodrine 2.5 mg three times a day, morphine 4 mg IV q.4 hours as needed for severe pain, Zofran 4 mg IV q.4 hours as needed for nausea and vomiting, Xifaxan 550 mg twice a day, Aldactone 25 mg daily. So as I said the patient has been evaluated by hospice. Hopefully, he will be able to go home today with hospice. Prognosis is extremely poor due to the end-stage liver disease secondary to cirrhosis on top of that he has few areas of hepatomas also and hepatorenal syndrome, chronic renal failure stage 4. So as I said, the caseworker is working with a hospice agency for possible discharge today with hospice. MD DARREL Najera/KELLY /[id number]
--- NOTE | 2019-08-11 14:20 | NUR ---
at bedside. Aware of d/c planning
--- NOTE | 2019-08-11 15:07 | Diagnostic Imaging Report ---
PROCEDURE: Ultrasound-guided paracentesis Procedural Personnel Attending physician(s): Derick Vasquez MD Pre-procedure diagnosis: Ascites Post-procedure diagnosis: Unchanged Indication: Ascites with pain or pressure symptoms Additional clinical history: None Complications: No immediate complications. IMPRESSION: Ultrasound-guided paracentesis with drainage of 6000 mL of serous fluid. Plan: Resume care by clinical team. PROCEDURE SUMMARY: - Limited abdominal ultrasound - Ultrasound-guided paracentesis - Additional procedure(s): None PROCEDURE DETAILS: Pre-procedure Consent: Informed consent for the procedure including risks, benefits and alternatives was obtained and time-out was performed prior to the procedure. Preparation: The site was prepared and draped using maximal sterile barrier technique including cutaneous antisepsis. Anesthesia/sedation Level of anesthesia/sedation: None Initial abdominal ultrasound Initial abdominal ultrasound was performed. Findings: Large ascites. A safe window for paracentesis was identified. Paracentesis Local anesthesia was administered. The peritoneal cavity was accessed and fluid return confirmed position. Ascites was drained. The catheter was then removed, and a sterile bandage was applied. Paracentesis access technique: Real-time ultrasound guidance. Catheter placed: 5Fr Yueh Post-drainage ultrasound: No visible ascites Additional Details Additional description of procedure: None Equipment details: None Specimens removed: Abdominal fluid Estimated blood loss (mL): Minimal (<10cc) Standardized report: [email or web address] Attestation Signer name: Derick Vasquez MD I attest that I was present for the entire procedure. I reviewed the stored images and agree with the report as written. Signed by: Derick Vasquez MD on 08/11/2019 3:03 PM
--- NOTE | 2019-08-11 15:53 | NUR ---
Dr.Haddad Urias aware of d/c plan. States "he would like to be called results prior to discharge" Addendum: 08/11/19 at 1554 by ARIES CARR RN Results pending at this time.
[2019-08-11 15:55] LABS: BODY FLUID TYPE PERITONEAL
[2019-08-11 15:56] LABS: BODY FLUID APPEARANCE CLOUDY; BODY FLUID COLOR STRAW; RBC,BODY FLUID 151 cells/uL; WBC,BODY FLUID 17 cells/uL
[2019-08-11 16:33] LABS: LYMPHOCYTES,BODY FLUID 52 %; MONO/MACROPHG,BODY FLUID 14 %; NEUTROPHILS,BODY FLUID 13 %; OTHER CELLS,BODY FLUID 21 %
[2019-08-11] MEDS: AZITHROMYCIN 250MG/NS 100 ML 100 ML IV SCH (16:52)
--- NOTE | 2019-08-11 16:57 | NUR ---
Notified Dr. Alexander Payan of lab results. See orders Addendum: 08/11/19 at 1721 by ARIES CARR RN aware no rx available.
--- NOTE | 2019-08-11 18:57 | Consultation ---
DATE OF CONSULTATION: Initial Nephrology Consultation Report REASON FOR CONSULTATION: Renal failure. HISTORY OF PRESENT ILLNESS: Mr. Mercer is a 68-year-old male, who presents to the hospital. I actually know this patient well. He was here in the hospital about one or two weeks ago. He has liver cirrhosis and he also has progressive renal failure, most likely from hepatorenal syndrome. Also he was diagnosed during that hospitalization, he also was having liver cancer. The patient actually is admitted. He was not feeling well and he has actually been cleared hospice. PAST MEDICAL HISTORY: Liver disease, newly diagnosed hepatocellular carcinoma. REVIEW OF SYSTEMS: As per HPI. PAST MEDICAL HISTORY: Cirrhosis of the liver, hepatorenal syndrome, renal failure secondary to hepatorenal syndrome, and hepatocellular carcinoma. SOCIAL HISTORY: Positive EtOH. PHYSICAL EXAMINATION: GENERAL: The patient is lethargic. HEENT: No increased JVD. CARDIOVASCULAR: Regular rate and rhythm. LUNGS: Decreased breath sounds. ABDOMEN: Soft. EXTREMITIES: No edema. LABORATORY RESULTS: Sodium 135, potassium 4.7, chloride 104, bicarb 20, BUN and creatinine 96 and 4.4 respectively. Hemoglobin and hematocrit 10 and 31. IMPRESSION: 1. End-stage liver disease. 2. Cirrhosis. 3. Kidney failure secondary to hepatorenal syndrome. 4. Anemia. 5. Hepatocellular carcinoma. PLAN: The patient has been declared hospice and he will be kept comfortable. NSAIDs, FRASER-2 inhibitors, IV contrast should be avoided. I will follow the patient with you. The patient is made hospice. Ather MD NEO Beck/KELLY /[id number]
--- NOTE | 2019-08-11 19:32 | NUR ---
Report given to oncoming nurse of patient's status. Resting in bed. No s/s of acute distress noted. Dressing to right abdomen clean, dry, and intact. Side rails upx2, call light within reach. Awaiting for transportation.
--- NOTE | 2019-08-11 19:59 | NUR ---
DISCONTINUED IV TO R EJ CATHETER TIP INTACT. TOLERATED WELL. NO ADVERSE SIGNS. CDI GAUZE AND TAPE APPLIED. AAOX3. PATIENT DISCHARGED HOME WITH HOSPICE. TRANSPORTED ON STRETCHER BY EMS OFF UNIT.
--- NOTE | 2019-08-12 06:28 | Discharge Summary ---
HOSPITAL COURSE: A 68-year-old male who has a past medical history positive for end-stage liver disease secondary to cirrhosis of the liver, hepatoma, chronic renal failure secondary to hepatorenal syndrome, discharged recently from the hospital, very poor prognosis. He had a liver biopsy also. The patient was seen by Dr. Laguerre, Hemato-oncologist, who diagnosed him also with very most likely positive hepatoma on top of the cirrhosis of the liver, on top of hepatorenal syndrome. The patient has very poor prognosis. The patient decided to go to hospice. He is going to be discharged with hospice today. PHYSICAL EXAMINATION: HEART: Showed regular rhythm. Normal S1, S2 sound. LUNGS: Clear bilaterally. ABDOMEN: Soft, nontender. No distention. No visceromegaly. FINAL IMPRESSION: 1. End-stage liver disease secondary to cirrhosis of the liver. 2. Possible two areas of hepatoma. 3. Chronic renal failure, stage 4 secondary to hepatorenal syndrome. 4. Anemia of chronic disease. PLAN OF TREATMENT: The patient is going to be discharged home with hospice today. Prognosis is very poor. The patient has been seen by Dr. Laguerre, Hemato-Oncology, whose impression, the prognosis is extremely poor due to liver tumor, most likely secondary to hepatoma, cirrhosis of the liver, portal hypertension and hepatorenal syndrome. . Hospice has been arranged. dot compliance manager working on that. The patient is going home today with hospice. MD DARREL Najera/KELLY /[id number]
== END 2019-08-11 19:58 | disposition hospice, home (50) | DRG 432 ==
LOC: ER 09:38 → ERHOLD 12:31 → MED/SURG3 13:54
PROVIDERS: ADMIT Internal Medicine; ATTEND Internal Medicine
PROC: 0W9G3ZZ Drainage of Peritoneal Cavity, Percutaneous Approach (ICD-10-PCS; principal; 2019-08-11)
DX: K70.31 Alcoholic cirrhosis of liver with ascites (principal); K76.7 Hepatorenal syndrome; J18.9 Pneumonia, unspecified organism; C22.0 Liver cell carcinoma; K76.6 Portal hypertension; N18.4 Chronic kidney disease, stage 4 (severe); D63.8 Anemia in other chronic diseases classified elsewhere; Z87.891 Personal history of nicotine dependence; F10.21 Alcohol dependence, in remission; Z66 Do not resuscitate; I13.10 Hypertensive heart and chronic kidney disease without heart failure, with stage 1 through stage 4 chronic kidney disease, or unspecified chronic kidney disease; E80.6 Other disorders of bilirubin metabolism; E77.8 Other disorders of glycoprotein metabolism; E88.09 Other disorders of plasma-protein metabolism, not elsewhere classified
CPT/HCPCS: 36415; 49083; 71045; 74176; 74470; 80053; 81001; 82550; 82553; 83605; 83690; 83735; 84100; 84484; 85025; 85610; 85730; 87040; 87070; 87086; 87205; 87635; 88112; 88305; 89051; 93005; 99284; C1729; J0692; J1940; J2405; J3370; J7040